=== PATIENT | male | born 1975 | race Asian ===

== ENCOUNTER 2016-06-02 15:04 | Inpatient (IN) | payer MEDICAID ==
[~2016-06-02] VITALS: Ht 175.3 cm; Wt 95.5 kg
[~2016-06-02 15:04] MED LIST: AMLO-512 PO; ARIP2 PO; CLON.2 PO; FLUT16H NASAL; HALO1 PO; LISI-662 PO; OMEP20 PO; TRAZ-144 PO
[2016-06-02 15:58] VITALS: BP 158/100
[2016-06-02] MEDS ORDERED: DiphenhydrAMINE HCL 50 MG/ML VIAL IM ONE (16:15)
[2016-06-02] MEDS ORDERED: HALOPERIDOL 5 MG TABLET PO PRN (16:15)
[2016-06-02] MEDS ORDERED: LORazepam 2 MG/ML VIAL IM ONE (16:15)
[2016-06-02] MEDS ORDERED: HALOPERIDOL LACTATE 5 MG/ML VIAL IM ONE (16:15)
[2016-06-02] MEDS ORDERED: ZOLPIDEM TARTRATE 10 MG TABLET PO PRN (16:15)
[2016-06-02] MEDS ORDERED: PALI234D IM (17:31)
[2016-06-02 17:32] VITALS: BP 142/88
[2016-06-02] MEDS: OMEPRAZOLE 20 MG CAPSULE PO SCH (18:33)
[2016-06-02 20:23] VITALS: BP 141/85
[2016-06-03 06:44] VITALS: BP 136/79
[2016-06-03 08:02] LABS: ALANINE AMINOTRANSFERASE 31 U/L (12-78); ALBUMIN 3.5 g/dL (3.4-5.0); ANION GAP 7 mmol/L (8-16); ASPARTATE AMINOTRANSFERASE 21 U/L (15-37); BILIRUBIN,TOTAL 0.4 mg/dL (0.1-1.0); CALCIUM, TOTAL 9.3 mg/dL (8.8-10.5); CARBON DIOXIDE 32 mmol/L (22-29); CHLORIDE 101 mmol/L (98-107); CREATININE 1.15 mg/dL (0.60-1.30); GLOMERULAR FILTR. RATE CALC > 60 mL/min (>60); POTASSIUM 4.7 mmol/L (3.5-5.1); SODIUM SERUM 140 mmol/L (136-145); TOTAL PROTEIN, SERUM 7.6 g/dL (6.4-8.2); UREA NITROGEN, BLOOD 18 mg/dL (7-18)
[2016-06-03 08:03] LABS: BASOPHILS # (AUTO) 0.05 K/uL (0.00-0.20); BASOPHILS % (AUTO) 0.5 % (0.0-2.0); EOSINOPHILS # (AUTO) 0.49 K/uL (0.00-0.70); EOSINOPHILS % (AUTO) 4.75 % (1.0-6.0); HEMATOCRIT 50.7 % (41-53); HEMOGLOBIN 17.2 g/dL (13.5-17.5); LYMPHOCYTES # (AUTO) 1.5 K/uL (1.0-4.8); MEAN CORPUSCULAR HEMOGLOBIN 29.4 pg (26.0-34.0); MEAN CORPUSCULAR VOLUME 86 fL (80-100); MONOCYTES # (AUTO) 0.9 K/uL (0.1-1.0); MONOCYTES % (AUTO) 9.1 % (2.0-9.0); NEUTROPHILS # (AUTO) 7.3 K/uL (1.8-7.7); NEUTROPHILS % (AUTO) 70.7 % (40.0-70.0); PLATELET COUNT (AUTO) 315 K/uL (150-450); RED BLOOD CELL COUNT(AUTO) 5.86 MIL/uL (4.50-5.90); RED CELL DISTRIBUTION WIDTH 13.5 % (11.5-14.5); WHITE BLOOD COUNT (AUTO) 10.3 K/uL (4.5-11.0)
[2016-06-03 08:16] LABS: APPEARANCE,URINE TURBID (CLEAR); GLUCOSE, URINE (UA) NEGATIVE (NEGATIVE); KETONES,URINE NEGATIVE (NEGATIVE); LEUKOCYTE ESTERASE ,URINE NEGATIVE (NEGATIVE); OCCULT BLOOD,URINE TRACE (NEGATIVE); PH,URINE 5.5 (5.0-8.0); PROTEIN,URINE TRACE (NEGATIVE)
[2016-06-03 08:18] LABS: ADD UA MICROSCOPIC YES
[2016-06-03 08:21] LABS: AMORPHOUS SEDIMENT,UR Many /LPF (None Seen); RBC,URINE 0-2 /HPF (0-2); WBC,URINE 0-2 /HPF (0-5)
[2016-06-03 08:38] VITALS: BP 142/87
[2016-06-03] MEDS: LISINOPRIL 20 MG TABLET PO SCH (10:07)
[2016-06-03] MEDS: AmLODIPine BESYLATE 10 MG TABLET PO SCH (10:08)
[2016-06-03] MEDS: PALIPERIDONE 6 MG ER TABLET PO SCH (10:08)
[2016-06-03] MEDS: OMEPRAZOLE 20 MG CAPSULE PO SCH (10:08)
[2016-06-03] MEDS: CloNIDine HCL 0.2 MG TABLET PO SCH ×2 (10:08→16:32)
[2016-06-03 12:23] VITALS: BP 134/85
[2016-06-03] MEDS: LORazepam 2 MG TABLET PO PRN (15:10)
[2016-06-03] MEDS ORDERED: IBUPROFEN 400 MG TABLET PO PRN (15:30)
[2016-06-03] MEDS ORDERED: ACETAMINOPHEN 325 MG TABLET PO PRN (15:30)
[2016-06-03 16:20] VITALS: BP 132/84
[2016-06-03] MEDS: FLUTICASONE PROPIONATE 50 MCG/SPRAY 16 GM NASAL SPRAY NASAL SCH (20:53)
[2016-06-04 06:47] VITALS: BP 145/95
[2016-06-04 07:51] LABS: HEMOGLOBIN A1C 5.5 % (4.5-6.2)
[2016-06-04 08:13] VITALS: BP 140/65
[2016-06-04] MEDS ORDERED: GuaiFENesin/D-METHORPHAN [SUGAR-FREE] 200-20MG/10 ML SYRUP UDCUP PO PRN (08:15)
[2016-06-04 08:41] LABS: CHOL/HDL RATIO 5.6 (4.2-7.3); THYROID STIMULATING HORMONE 0.75 uIU/mL (0.36-3.74)
[2016-06-04] MEDS ORDERED: OMEPRAZOLE 20 MG CAPSULE PO SCH (09:00)
[2016-06-04] MEDS: AmLODIPine BESYLATE 10 MG TABLET PO SCH (09:53)
[2016-06-04] MEDS: PALIPERIDONE 6 MG ER TABLET PO SCH (09:53)
[2016-06-04] MEDS: LORazepam 2 MG TABLET PO PRN ×3 (09:53→23:52)
[2016-06-04] MEDS: CloNIDine HCL 0.2 MG TABLET PO SCH ×2 (09:53→17:13)
[2016-06-04] MEDS: LISINOPRIL 20 MG TABLET PO SCH (09:53)
[2016-06-04] MEDS: OMEPRAZOLE 20 MG CAPSULE PO SCH (09:53)
[2016-06-04] MEDS: FLUTICASONE PROPIONATE 50 MCG/SPRAY 16 GM NASAL SPRAY NASAL SCH ×2 (09:53→17:13)
[2016-06-04 16:00] VITALS: BP 148/98
[2016-06-04 19:35] VITALS: BP 136/94
[2016-06-05 02:26] VITALS: BP 137/75
[2016-06-05 08:13] VITALS: BP 133/76
[2016-06-05] MEDS: FLUTICASONE PROPIONATE 50 MCG/SPRAY 16 GM NASAL SPRAY NASAL SCH (08:36)
[2016-06-05] MEDS: LORazepam 2 MG TABLET PO PRN (08:36)
[2016-06-05] MEDS: OMEPRAZOLE 20 MG CAPSULE PO SCH (08:36)
[2016-06-05] MEDS: LISINOPRIL 20 MG TABLET PO SCH (08:36)
[2016-06-05] MEDS: AmLODIPine BESYLATE 10 MG TABLET PO SCH (08:36)
[2016-06-05] MEDS: PALIPERIDONE 6 MG ER TABLET PO SCH (08:36)
[2016-06-05] MEDS: CloNIDine HCL 0.2 MG TABLET PO SCH (08:36)
[2016-06-05] MEDS ORDERED: PALI6 PO (10:03)
== END 2016-06-05 12:47 | disposition home or self-care (01) | DRG 750 ==
LOC: B3A 16:35 → B2S 16:35 → EDSTATUS 16:51 → B3A 18:00
PROVIDERS: ADMIT Psychiatry & Neurology Psychiatry; ATTEND Psychiatry & Neurology Psychiatry
DX: F25.0 Schizoaffective disorder, bipolar type (principal); R45.851 Suicidal ideations; Z59.0 Homelessness; I10 Essential (primary) hypertension; K21.9 Gastro-esophageal reflux disease without esophagitis; J30.9 Allergic rhinitis, unspecified; F17.200 Nicotine dependence, unspecified, uncomplicated; F12.10 Cannabis abuse, uncomplicated; F10.10 Alcohol abuse, uncomplicated; Z88.8 Allergy status to other drugs, medicaments and biological substances; Z90.49 Acquired absence of other specified parts of digestive tract; Z98.890 Other specified postprocedural states; Z79.899 Other long term (current) drug therapy; Z71.6 Tobacco abuse counseling
CPT/HCPCS: 83036; 84443; 87081; 87086; J1200; J1630; J2060

== ENCOUNTER 2016-06-21 13:06 | Emergency (ER) | payer MEDICAID ==
[~2016-06-21] VITALS: Ht 175.3 cm; Wt 95.0 kg
[~2016-06-21 13:06] MED LIST changes: -ARIP2 PO; -HALO1 PO; +PALI234D IM; +PALI6 PO; -TRAZ-144 PO
[2016-06-21] MEDS ORDERED: KETOROLAC TROMETHAMINE 60 MG/2 ML VIAL IM ONE (15:15)
[2016-06-21] MEDS ORDERED: LORazepam 2 MG TABLET PO ONE (15:15)
[2016-06-21 15:23] LABS: BASOPHILS % (AUTO) 0.1 % (0.0-2.0); EOSINOPHILS % (AUTO) 2.4 % (1.0-6.0); HEMATOCRIT 44.1 % (41-53); HEMOGLOBIN 14.7 g/dL (13.5-17.5); LYMPHOCYTES % (AUTO) 6.2 % (22.0-44.0); MEAN CORPUSCULAR HEMOGLOBIN 28.6 pg (26.0-34.0); MEAN CORPUSCULAR HGB CONC 33.3 G/dL (31.0-37.0); MEAN CORPUSCULAR VOLUME 86 fL (80-100); MONOCYTES # (AUTO) 0.8 K/uL (0.1-1.0); MONOCYTES % (AUTO) 4.7 % (2.0-9.0); NEUTROPHILS # (AUTO) 14.6 K/uL (1.8-7.7); PLATELET COUNT (AUTO) 245 K/uL (150-450); RED BLOOD CELL COUNT(AUTO) 5.13 MIL/uL (4.50-5.90); WHITE BLOOD COUNT (AUTO) 16.9 K/uL (4.5-11.0)
[2016-06-21 15:24] LABS: NEUTROPHILS % (AUTO) 86.6 % (40.0-70.0)
[2016-06-21 15:35] LABS: ANION GAP 9 mmol/L (8-16); CALCIUM, TOTAL 8.7 mg/dL (8.8-10.5); CARBON DIOXIDE 27 mmol/L (22-29); CHLORIDE 98 mmol/L (98-107); CREATININE 1.02 mg/dL (0.60-1.30); GLOMERULAR FILTR. RATE CALC > 60 mL/min (>60); POTASSIUM 3.6 mmol/L (3.5-5.1); SODIUM SERUM 134 mmol/L (136-145); UREA NITROGEN, BLOOD 19 mg/dL (7-18)
[2016-06-21 15:41] LABS: ALANINE AMINOTRANSFERASE 39 U/L (12-78); ALBUMIN 3.6 g/dL (3.4-5.0); ASPARTATE AMINOTRANSFERASE 27 U/L (15-37); BILIRUBIN,TOTAL 0.4 mg/dL (0.1-1.0); TOTAL PROTEIN, SERUM 7.6 g/dL (6.4-8.2)
[2016-06-21 15:50] LABS: RBC MORPHOLOGY COMMENT NORMAL RBC MORPH
[2016-06-21 16:58] VITALS: BP 156/83
== END 2016-06-21 17:17 | disposition home or self-care (01) ==
LOC: EMS 13:10
DX: F41.9 Anxiety disorder, unspecified (principal); F15.10 Other stimulant abuse, uncomplicated; M54.5 Low back pain; I10 Essential (primary) hypertension; F17.210 Nicotine dependence, cigarettes, uncomplicated; Z88.5 Allergy status to narcotic agent; Z88.8 Allergy status to other drugs, medicaments and biological substances
CPT/HCPCS: 36415; 80053; 85025; 96372; 99284; 99406; J1885

== ENCOUNTER 2016-07-05 18:01 | Emergency (ER) | payer MEDICAID ==
[~2016-07-05] VITALS: Ht 172.7 cm; Wt 91.0 kg
[2016-07-05 18:45] LABS: BASOPHILS % (AUTO) 0.7 % (0.0-2.0); EOSINOPHILS % (AUTO) 1.5 % (1.0-6.0); HEMATOCRIT 44.7 % (41-53); HEMOGLOBIN 14.8 g/dL (13.5-17.5); LYMPHOCYTES # (AUTO) 1.4 K/uL (1.0-4.8); LYMPHOCYTES % (AUTO) 11.9 % (22.0-44.0); MEAN CORPUSCULAR HEMOGLOBIN 28.6 pg (26.0-34.0); MEAN CORPUSCULAR HGB CONC 33.2 G/dL (31.0-37.0); MEAN CORPUSCULAR VOLUME 86 fL (80-100); MONOCYTES # (AUTO) 0.6 K/uL (0.1-1.0); NEUTROPHILS # (AUTO) 9.5 K/uL (1.8-7.7); NEUTROPHILS % (AUTO) 80.9 % (40.0-70.0); PLATELET COUNT (AUTO) 392 K/uL (150-450); RED BLOOD CELL COUNT(AUTO) 5.19 MIL/uL (4.50-5.90); RED CELL DISTRIBUTION WIDTH 13.2 % (11.5-14.5); WHITE BLOOD COUNT (AUTO) 11.8 K/uL (4.5-11.0)
[2016-07-05] MEDS ORDERED: SODIUM CHLORIDE 0.9% 1,000 ML IV ONE (19:00)
[2016-07-05] MEDS ORDERED: LORazepam 2 MG TABLET PO ONE (19:00)
[2016-07-05 19:03] LABS: ANION GAP 10 mmol/L (8-16); CARBON DIOXIDE 26 mmol/L (22-29); CHLORIDE 100 mmol/L (98-107); CREATININE 1.18 mg/dL (0.60-1.30); GLOMERULAR FILTR. RATE CALC > 60 mL/min (>60); POTASSIUM 3.5 mmol/L (3.5-5.1); SODIUM SERUM 136 mmol/L (136-145); UREA NITROGEN, BLOOD 17 mg/dL (7-18)
[2016-07-05 19:07] LABS: ALANINE AMINOTRANSFERASE 32 U/L (12-78); ALBUMIN 3.5 g/dL (3.4-5.0); ASPARTATE AMINOTRANSFERASE 22 U/L (15-37); BILIRUBIN,TOTAL 0.3 mg/dL (0.1-1.0)
[2016-07-05] MEDS ORDERED: NITROGLYCERIN 2% (1 GM=INCH) PACKET TP ONE (20:30)
[2016-07-05] MEDS ORDERED: DONNATAL/LIDOCAINE/MAALOX 55 ML BOTTLE PO ONE (20:30)
[2016-07-05] MEDS ORDERED: ACETAMINOPHEN 500 MG TABLET PO ONE (20:30)
[2016-07-05] MEDS ORDERED: ASPIRIN 81 MG CHEWABLE TABLET PO ONE (20:30)
[2016-07-05] MEDS ORDERED: LISINOPRIL 10 MG TABLET PO ONE (21:30)
[2016-07-05 21:56] VITALS: BP 138/85
== END 2016-07-05 22:27 | disposition home or self-care (01) ==
LOC: EMS 18:03 → EEVIPCON 18:03 → EMS 22:27
DX: F31.9 Bipolar disorder, unspecified (principal); F20.9 Schizophrenia, unspecified; F41.9 Anxiety disorder, unspecified; F15.10 Other stimulant abuse, uncomplicated; I10 Essential (primary) hypertension; F17.210 Nicotine dependence, cigarettes, uncomplicated; Z88.5 Allergy status to narcotic agent; Z88.8 Allergy status to other drugs, medicaments and biological substances
CPT/HCPCS: 36415; 80053; 80307; 84484; 85025; 93005; 96360; 99285; G0480; J7030; Z7610

== ENCOUNTER 2016-07-07 13:57 | Emergency (ER) | payer MEDICAID ==
[~2016-07-07] VITALS: Ht 172.7 cm; Wt 99.0 kg
[2016-07-07 15:35] LABS: BASOPHILS # (AUTO) 0.06 K/uL (0.00-0.20); BASOPHILS % (AUTO) 0.7 % (0.0-2.0); EOSINOPHILS % (AUTO) 3.62 % (1.0-6.0); HEMATOCRIT 43.8 % (41-53); HEMOGLOBIN 14.9 g/dL (13.5-17.5); LYMPHOCYTES # (AUTO) 1.7 K/uL (1.0-4.8); LYMPHOCYTES % (AUTO) 20.7 % (22.0-44.0); MEAN CORPUSCULAR HEMOGLOBIN 29.1 pg (26.0-34.0); MEAN CORPUSCULAR HGB CONC 33.9 G/dL (31.0-37.0); MEAN CORPUSCULAR VOLUME 86 fL (80-100); MONOCYTES % (AUTO) 11.5 % (2.0-9.0); NEUTROPHILS # (AUTO) 5.2 K/uL (1.8-7.7); NEUTROPHILS % (AUTO) 63.5 % (40.0-70.0); PLATELET COUNT (AUTO) 347 K/uL (150-450); RED CELL DISTRIBUTION WIDTH 14.2 % (11.5-14.5); WHITE BLOOD COUNT (AUTO) 8.2 K/uL (4.5-11.0)
[2016-07-07 15:48] LABS: ANION GAP 6 mmol/L (8-16); CALCIUM, TOTAL 8.8 mg/dL (8.8-10.5); CARBON DIOXIDE 32 mmol/L (22-29); CHLORIDE 103 mmol/L (98-107); CREATININE 1.24 mg/dL (0.60-1.30); GLOMERULAR FILTR. RATE CALC > 60 mL/min (>60); POTASSIUM 3.5 mmol/L (3.5-5.1); SODIUM SERUM 141 mmol/L (136-145); UREA NITROGEN, BLOOD 15 mg/dL (7-18)
[2016-07-07 15:54] LABS: ALANINE AMINOTRANSFERASE 32 U/L (12-78); ALBUMIN 3.6 g/dL (3.4-5.0); ASPARTATE AMINOTRANSFERASE 18 U/L (15-37); BILIRUBIN,TOTAL 0.3 mg/dL (0.1-1.0); TOTAL PROTEIN, SERUM 7.9 g/dL (6.4-8.2)
[2016-07-07] MEDS ORDERED: LORazepam 2 MG TABLET PO ONE (17:00)
[2016-07-07] MEDS ORDERED: HALOPERIDOL 5 MG TABLET PO ONE (17:00)
[2016-07-07 17:18] VITALS: BP 144/88
== END 2016-07-07 17:20 | disposition home or self-care (01) ==
LOC: EMS 13:59
DX: F25.9 Schizoaffective disorder, unspecified (principal); F15.10 Other stimulant abuse, uncomplicated; F17.210 Nicotine dependence, cigarettes, uncomplicated; F41.9 Anxiety disorder, unspecified; I10 Essential (primary) hypertension; F42.9 Obsessive-compulsive disorder, unspecified; F43.10 Post-traumatic stress disorder, unspecified; Z88.6 Allergy status to analgesic agent; Z88.8 Allergy status to other drugs, medicaments and biological substances; Z79.899 Other long term (current) drug therapy
CPT/HCPCS: 36415; 80053; 80307; 85025; 99285; 99406; G0480

== ENCOUNTER 2016-07-11 18:36 | Inpatient (IN) | payer MEDICAID ==
[~2016-07-11] VITALS: Ht 172.7 cm; Wt 94.7 kg
[2016-07-11] MEDS ORDERED: ZOLPIDEM TARTRATE 10 MG TABLET PO PRN (19:15)
[2016-07-11] MEDS ORDERED: HALOPERIDOL 5 MG TABLET PO PRN (19:15)
[2016-07-11] MEDS ORDERED: LORazepam 2 MG/ML VIAL IM ONE (20:00)
[2016-07-11] MEDS ORDERED: DiphenhydrAMINE HCL 50 MG/ML VIAL IM ONE (20:00)
[2016-07-11] MEDS ORDERED: HALOPERIDOL LACTATE 5 MG/ML VIAL IM ONE (20:00)
[2016-07-11 20:12] VITALS: BP 160/90
[2016-07-11 21:15] VITALS: BP 132/82
[2016-07-12 07:20] VITALS: BP 112/69
[2016-07-12 08:44] LABS: BASOPHILS % (AUTO) 0.9 % (0.0-2.0); EOSINOPHILS % (AUTO) 5.9 % (1.0-6.0); HEMATOCRIT 46.4 % (41-53); HEMOGLOBIN 15.1 g/dL (13.5-17.5); LYMPHOCYTES % (AUTO) 26.5 % (22.0-44.0); MEAN CORPUSCULAR HEMOGLOBIN 28.4 pg (26.0-34.0); MEAN CORPUSCULAR HGB CONC 32.6 G/dL (31.0-37.0); MEAN CORPUSCULAR VOLUME 87 fL (80-100); MONOCYTES # (AUTO) 0.8 K/uL (0.1-1.0); MONOCYTES % (AUTO) 10.2 % (2.0-9.0); NEUTROPHILS # (AUTO) 4.3 K/uL (1.8-7.7); NEUTROPHILS % (AUTO) 56.5 % (40.0-70.0); PLATELET COUNT (AUTO) 340 K/uL (150-450); RED BLOOD CELL COUNT(AUTO) 5.33 MIL/uL (4.50-5.90); RED CELL DISTRIBUTION WIDTH 13.7 % (11.5-14.5); WHITE BLOOD COUNT (AUTO) 7.6 K/uL (4.5-11.0)
[2016-07-12 08:52] VITALS: BP 149/98
[2016-07-12] MEDS: FLUTICASONE PROPIONATE 50 MCG/SPRAY 16 GM NASAL SPRAY NASAL SCH ×2 (09:39→17:09)
[2016-07-12] MEDS: LISINOPRIL 20 MG TABLET PO SCH (09:39)
[2016-07-12] MEDS: NYSTATIN 15 GM POWDER BOTTLE TP SCH ×2 (09:39→17:09)
[2016-07-12] MEDS: AmLODIPine BESYLATE 10 MG TABLET PO SCH (09:39)
[2016-07-12] MEDS: PALIPERIDONE 6 MG ER TABLET PO SCH (09:39)
[2016-07-12] MEDS: CloNIDine HCL 0.1 MG TABLET PO SCH (09:39)
[2016-07-12 09:45] LABS: ALANINE AMINOTRANSFERASE 34 U/L (12-78); ALBUMIN 3.3 g/dL (3.4-5.0); ANION GAP 7 mmol/L (8-16); ASPARTATE AMINOTRANSFERASE 22 U/L (15-37); BILIRUBIN,TOTAL 0.5 mg/dL (0.1-1.0); CALCIUM, TOTAL 8.4 mg/dL (8.8-10.5); CARBON DIOXIDE 30 mmol/L (22-29); CHLORIDE 105 mmol/L (98-107); CHOL/HDL RATIO 3.7 (4.2-7.3); CREATININE 1.12 mg/dL (0.60-1.30); GLOMERULAR FILTR. RATE CALC > 60 mL/min (>60); POTASSIUM 3.7 mmol/L (3.5-5.1); SODIUM SERUM 142 mmol/L (136-145); THYROID STIMULATING HORMONE 0.59 uIU/mL (0.36-3.74); TOTAL PROTEIN, SERUM 7.2 g/dL (6.4-8.2); UREA NITROGEN, BLOOD 14 mg/dL (7-18)
[2016-07-12 16:00] VITALS: BP 136/81
[2016-07-13 07:03] VITALS: BP 138/80
[2016-07-13] MEDS: LORazepam 2 MG TABLET PO PRN ×2 (07:05→15:21)
[2016-07-13] MEDS: ACETAMINOPHEN 325 MG TABLET PO PRN (07:05)
[2016-07-13 08:30] VITALS: BP 136/75
[2016-07-13] MEDS: AmLODIPine BESYLATE 10 MG TABLET PO SCH (10:31)
[2016-07-13] MEDS: LISINOPRIL 20 MG TABLET PO SCH (10:31)
[2016-07-13] MEDS: FLUTICASONE PROPIONATE 50 MCG/SPRAY 16 GM NASAL SPRAY NASAL SCH ×2 (10:31→17:04)
[2016-07-13] MEDS: CloNIDine HCL 0.1 MG TABLET PO SCH (10:31)
[2016-07-13] MEDS: NYSTATIN 15 GM POWDER BOTTLE TP SCH ×2 (10:31→17:04)
[2016-07-13] MEDS: PALIPERIDONE 6 MG ER TABLET PO SCH (10:46)
[2016-07-13 16:00] VITALS: BP 130/77
[2016-07-14] MEDS: LORazepam 2 MG TABLET PO PRN (05:50)
[2016-07-14] MEDS: ACETAMINOPHEN 325 MG TABLET PO PRN (05:51)
[2016-07-14 08:24] VITALS: BP 133/84
[2016-07-14] MEDS: AmLODIPine BESYLATE 10 MG TABLET PO SCH (08:57)
[2016-07-14] MEDS: PALIPERIDONE 6 MG ER TABLET PO SCH (08:57)
[2016-07-14] MEDS: CloNIDine HCL 0.1 MG TABLET PO SCH (08:57)
[2016-07-14] MEDS: LISINOPRIL 20 MG TABLET PO SCH (08:57)
[2016-07-14] MEDS: NYSTATIN 15 GM POWDER BOTTLE TP SCH (08:58)
[2016-07-14] MEDS: FLUTICASONE PROPIONATE 50 MCG/SPRAY 16 GM NASAL SPRAY NASAL SCH (08:58)
== END 2016-07-14 10:00 | disposition home or self-care (01) | DRG 750 ==
LOC: B3A 19:14 → EDSTATUS 19:18
DX: F25.1 Schizoaffective disorder, depressive type (principal); R45.851 Suicidal ideations; Z59.0 Homelessness; I10 Essential (primary) hypertension; J30.9 Allergic rhinitis, unspecified; K21.9 Gastro-esophageal reflux disease without esophagitis; F15.10 Other stimulant abuse, uncomplicated; F99 Mental disorder, not otherwise specified; F17.200 Nicotine dependence, unspecified, uncomplicated; Z91.5 Personal history of self-harm; Z88.5 Allergy status to narcotic agent; Z88.8 Allergy status to other drugs, medicaments and biological substances; Z79.899 Other long term (current) drug therapy; Z71.6 Tobacco abuse counseling; Z71.51 Drug abuse counseling and surveillance of drug abuser; Z98.890 Other specified postprocedural states; Z90.49 Acquired absence of other specified parts of digestive tract
CPT/HCPCS: 83036; 84439; 84443; J1200; J1630; J2060

== ENCOUNTER 2016-07-14 22:21 | Emergency (ER) | payer MEDICAID ==
[~2016-07-14] VITALS: Ht 172.7 cm; Wt 127.0 kg
[2016-07-14 22:31] VITALS: BP 142/96
== END 2016-07-15 00:27 | disposition left against medical advice (07) ==
LOC: EMS 22:25
DX: R44.0 Auditory hallucinations (principal); F31.9 Bipolar disorder, unspecified; F20.9 Schizophrenia, unspecified; F41.9 Anxiety disorder, unspecified; I10 Essential (primary) hypertension; F15.90 Other stimulant use, unspecified, uncomplicated; F17.210 Nicotine dependence, cigarettes, uncomplicated; Z53.21 Procedure and treatment not carried out due to patient leaving prior to being seen by health care provider
CPT/HCPCS: 99281

== ENCOUNTER 2016-07-15 01:23 | Inpatient (IN) | payer MEDICAID ==
[~2016-07-15] VITALS: Ht 172.7 cm; Wt 92.0 kg
[2016-07-15] MEDS ORDERED: MAGNESIUM HYDROXIDE SUSPENSION 30 ML UDCUP PO PRN (02:00)
[2016-07-15] MEDS ORDERED: MAG HYDROX/AL HYDROX/SIMETH ES 30 ML SUSPENSION UDCUP PO PRN (02:00)
[2016-07-15] MEDS ORDERED: BACITRACIN 0.9 GM PACKET OINTMENT TP ONE (03:30)
[2016-07-15 03:32] LABS: BASOPHILS % (AUTO) 0.7 % (0.0-2.0); EOSINOPHILS % (AUTO) 3.4 % (1.0-6.0); HEMATOCRIT 47.1 % (41-53); HEMOGLOBIN 15.7 g/dL (13.5-17.5); LYMPHOCYTES % (AUTO) 19.8 % (22.0-44.0); MEAN CORPUSCULAR HEMOGLOBIN 28.9 pg (26.0-34.0); MEAN CORPUSCULAR HGB CONC 33.2 G/dL (31.0-37.0); MEAN CORPUSCULAR VOLUME 87 fL (80-100); MONOCYTES % (AUTO) 9.9 % (2.0-9.0); NEUTROPHILS # (AUTO) 6.7 K/uL (1.8-7.7); NEUTROPHILS % (AUTO) 66.2 % (40.0-70.0); PLATELET COUNT (AUTO) 327 K/uL (150-450); RED BLOOD CELL COUNT(AUTO) 5.42 MIL/uL (4.50-5.90); RED CELL DISTRIBUTION WIDTH 13.5 % (11.5-14.5); WHITE BLOOD COUNT (AUTO) 10.1 K/uL (4.5-11.0)
[2016-07-15 03:35] LABS: ANION GAP 9 mmol/L (8-16); CALCIUM, TOTAL 8.8 mg/dL (8.8-10.5); CARBON DIOXIDE 29 mmol/L (22-29); CHLORIDE 102 mmol/L (98-107); CREATININE 1.17 mg/dL (0.60-1.30); GLOMERULAR FILTR. RATE CALC > 60 mL/min (>60); POTASSIUM 3.8 mmol/L (3.5-5.1); SODIUM SERUM 140 mmol/L (136-145); UREA NITROGEN, BLOOD 15 mg/dL (7-18)
[2016-07-15 03:42] LABS: ALANINE AMINOTRANSFERASE 34 U/L (12-78); ALBUMIN 3.9 g/dL (3.4-5.0); ASPARTATE AMINOTRANSFERASE 21 U/L (15-37); BILIRUBIN,TOTAL 0.3 mg/dL (0.1-1.0); TOTAL PROTEIN, SERUM 8.3 g/dL (6.4-8.2)
[2016-07-15] MEDS ORDERED: ACETAMINOPHEN 500 MG TABLET PO ONE (03:45)
[2016-07-15] MEDS ORDERED: MAG HYDROX/AL HYDROX/SIMETH ES 30 ML SUSPENSION UDCUP PO ONE (03:45)
[2016-07-15] MEDS: LORazepam 2 MG TABLET PO PRN (04:24)
[2016-07-15] MEDS ORDERED: LORazepam 2 MG TABLET PO ONE (18:15)
[2016-07-15] MEDS ORDERED: HALOPERIDOL 5 MG TABLET PO ONE (18:15)
[2016-07-16] MEDS: LORazepam 2 MG TABLET PO PRN ×3 (09:57→21:06)
[2016-07-16 14:31] VITALS: BP 154/100
[2016-07-16 14:40] VITALS: BP 154/100
[2016-07-16] MEDS: LISINOPRIL 20 MG TABLET PO SCH (15:00)
[2016-07-16 17:04] VITALS: BP 122/82
[2016-07-16] MEDS ORDERED: OLANZapine 5 MG TABLET PO SCH (21:00)
[2016-07-16] MEDS: ZOLPIDEM TARTRATE 10 MG TABLET PO PRN (22:31)
[2016-07-17 08:13] VITALS: BP 134/82
[2016-07-17] MEDS: LISINOPRIL 20 MG TABLET PO SCH (08:42)
[2016-07-17] MEDS: CloNIDine HCL 0.2 MG TABLET PO SCH (08:43)
[2016-07-17] MEDS: AmLODIPine BESYLATE 10 MG TABLET PO SCH (08:43)
[2016-07-17] MEDS: PALIPERIDONE 6 MG ER TABLET PO SCH (08:59)
[2016-07-17] MEDS ORDERED: FLUoxetine HCL 20 MG CAPSULE PO SCH (09:00)
[2016-07-17] MEDS: HALOPERIDOL 5 MG TABLET PO PRN ×2 (11:58→18:14)
[2016-07-17] MEDS: LORazepam 2 MG TABLET PO PRN ×2 (11:58→16:29)
[2016-07-17 16:16] VITALS: BP 131/77
[2016-07-17] MEDS: ACETAMINOPHEN 325 MG TABLET PO PRN (16:18)
[2016-07-17] MEDS: ZOLPIDEM TARTRATE 10 MG TABLET PO PRN (20:07)
[2016-07-18] MEDS: LISINOPRIL 20 MG TABLET PO SCH (08:06)
[2016-07-18] MEDS: HALOPERIDOL 5 MG TABLET PO PRN ×3 (08:06→18:49)
[2016-07-18] MEDS: LORazepam 2 MG TABLET PO PRN ×4 (08:06→20:16)
[2016-07-18] MEDS: CloNIDine HCL 0.2 MG TABLET PO SCH (08:06)
[2016-07-18] MEDS: AmLODIPine BESYLATE 10 MG TABLET PO SCH (08:06)
[2016-07-18] MEDS: PALIPERIDONE 6 MG ER TABLET PO SCH (08:07)
[2016-07-18] MEDS: ACETAMINOPHEN 325 MG TABLET PO PRN (08:07)
[2016-07-18 08:30] VITALS: BP 146/84
[2016-07-18 16:00] VITALS: BP 141/79
[2016-07-18] MEDS: ZOLPIDEM TARTRATE 10 MG TABLET PO PRN (20:16)
[2016-07-19] MEDS: CloNIDine HCL 0.2 MG TABLET PO SCH (08:07)
[2016-07-19] MEDS: PALIPERIDONE 6 MG ER TABLET PO SCH (08:07)
[2016-07-19] MEDS: LISINOPRIL 20 MG TABLET PO SCH (08:08)
[2016-07-19] MEDS: AmLODIPine BESYLATE 10 MG TABLET PO SCH (08:08)
[2016-07-19] MEDS: LORazepam 2 MG TABLET PO PRN (08:10)
[2016-07-19 08:58] VITALS: BP 134/84
== END 2016-07-19 11:50 | disposition home or self-care (01) | DRG 750 ==
LOC: EMS 01:25 → 3EC 07-16 14:00
PROVIDERS: ADMIT Psychiatry & Neurology Psychiatry
DX: F25.1 Schizoaffective disorder, depressive type (principal); R45.851 Suicidal ideations; E55.9 Vitamin D deficiency, unspecified; K31.9 Disease of stomach and duodenum, unspecified; J98.4 Other disorders of lung; I10 Essential (primary) hypertension; F15.10 Other stimulant abuse, uncomplicated; F42.9 Obsessive-compulsive disorder, unspecified; F43.10 Post-traumatic stress disorder, unspecified; K21.9 Gastro-esophageal reflux disease without esophagitis; J30.9 Allergic rhinitis, unspecified; S61.519A Laceration without foreign body of unspecified wrist, initial encounter; X78.9XXA Intentional self-harm by unspecified sharp object, initial encounter; F17.210 Nicotine dependence, cigarettes, uncomplicated; F10.10 Alcohol abuse, uncomplicated; Y92.89 Other specified places as the place of occurrence of the external cause; Y99.8 Other external cause status; Z59.0 Homelessness; Z91.19 Patient's noncompliance with other medical treatment and regimen; Z88.8 Allergy status to other drugs, medicaments and biological substances; Z88.5 Allergy status to narcotic agent; Y93.89 Activity, other specified; Z79.899 Other long term (current) drug therapy; Z71.6 Tobacco abuse counseling; F12.10 Cannabis abuse, uncomplicated
CPT/HCPCS: 87081; 99285; G0480

== ENCOUNTER 2016-11-21 10:38 | Emergency (ER) | payer MEDICAID ==
[~2016-11-21] VITALS: Ht 172.7 cm; Wt 96.8 kg
[~2016-11-21 10:38] MED LIST changes: -FLUT16H NASAL; +LEVO500T62 PO; -OMEP20 PO; -PALI234D IM
[2016-11-21] MEDS ORDERED: HYDR25TA PO (10:50)
[2016-11-21 10:57] VITALS: BP 156/91
== END 2016-11-21 11:47 | disposition home or self-care (01) ==
LOC: EMS 10:40
DX: I10 Essential (primary) hypertension (principal); F20.9 Schizophrenia, unspecified; F42.9 Obsessive-compulsive disorder, unspecified; F43.10 Post-traumatic stress disorder, unspecified; F31.9 Bipolar disorder, unspecified; F17.210 Nicotine dependence, cigarettes, uncomplicated; F15.10 Other stimulant abuse, uncomplicated; F41.9 Anxiety disorder, unspecified; Z59.0 Homelessness; Z90.49 Acquired absence of other specified parts of digestive tract; Z88.6 Allergy status to analgesic agent; Z88.8 Allergy status to other drugs, medicaments and biological substances
CPT/HCPCS: 99283

== ENCOUNTER 2016-12-13 07:09 | Emergency (ER) | payer MEDICAID ==
[~2016-12-13] VITALS: Ht 175.3 cm; Wt 85.0 kg
[~2016-12-13 07:09] MED LIST changes: +HYDR25TA PO; -LEVO500T62 PO; -PALI6 PO
[2016-12-13] MEDS ORDERED: ACETAMINOPHEN 1000 MG/ISO-OSM 100 ML IV ONE (07:45)
[2016-12-13] MEDS ORDERED: LORazepam 2 MG/ML VIAL IVP ONE (07:45)
[2016-12-13] MEDS ORDERED: CloNIDine HCL 0.2 MG TABLET PO ONE (08:00)
[2016-12-13 08:07] LABS: BASOPHILS % (AUTO) 1.4 % (0.0-2.0); EOSINOPHILS % (AUTO) 4.6 % (1.0-6.0); HEMATOCRIT 40.3 % (41-53); LYMPHOCYTES # (AUTO) 1.5 K/uL (1.0-4.8); LYMPHOCYTES % (AUTO) 23.8 % (22.0-44.0); MEAN CORPUSCULAR HEMOGLOBIN 30.1 pg (26.0-34.0); MEAN CORPUSCULAR HGB CONC 34.7 G/dL (31.0-37.0); MEAN CORPUSCULAR VOLUME 87 fL (80-100); MONOCYTES # (AUTO) 0.5 K/uL (0.1-1.0); MONOCYTES % (AUTO) 7.8 % (2.0-9.0); NEUTROPHILS % (AUTO) 62.4 % (40.0-70.0); PLATELET COUNT (AUTO) 262 K/uL (150-450); RED BLOOD CELL COUNT(AUTO) 4.64 MIL/uL (4.50-5.90); RED CELL DISTRIBUTION WIDTH 13.4 % (11.5-14.5); WHITE BLOOD COUNT (AUTO) 6.5 K/uL (4.5-11.0)
[2016-12-13 08:17] LABS: ANION GAP 9 mmol/L (8-16); CALCIUM, TOTAL 8.8 mg/dL (8.8-10.5); CARBON DIOXIDE 28 mmol/L (22-29); CHLORIDE 105 mmol/L (98-107); CREATININE 1.19 mg/dL (0.60-1.30); GLOMERULAR FILTR. RATE CALC > 60 mL/min (>60); POTASSIUM 3.9 mmol/L (3.5-5.1); SODIUM SERUM 142 mmol/L (136-145); UREA NITROGEN, BLOOD 13 mg/dL (7-18)
[2016-12-13 08:22] LABS: ALANINE AMINOTRANSFERASE 24 U/L (12-78); ALBUMIN 3.2 g/dL (3.4-5.0); ASPARTATE AMINOTRANSFERASE 17 U/L (15-37); BILIRUBIN,TOTAL 0.2 mg/dL (0.1-1.0); TOTAL PROTEIN, SERUM 6.9 g/dL (6.4-8.2)
[2016-12-13 12:19] VITALS: BP 150/99
== END 2016-12-13 12:29 | disposition home or self-care (01) ==
LOC: EMS 07:11
DX: K29.70 Gastritis, unspecified, without bleeding (principal); F15.129 Other stimulant abuse with intoxication, unspecified; I10 Essential (primary) hypertension; F41.9 Anxiety disorder, unspecified; F31.9 Bipolar disorder, unspecified; F90.9 Attention-deficit hyperactivity disorder, unspecified type; N28.9 Disorder of kidney and ureter, unspecified; F20.9 Schizophrenia, unspecified; F17.210 Nicotine dependence, cigarettes, uncomplicated; F19.90 Other psychoactive substance use, unspecified, uncomplicated; Z88.8 Allergy status to other drugs, medicaments and biological substances; Z88.5 Allergy status to narcotic agent
CPT/HCPCS: 36415; 71010; 80053; 83690; 84484; 85025; 93005; 96374; 96375; 99285; J0131; J2060

== ENCOUNTER 2016-12-15 01:21 | Emergency (ER) | payer MEDICAID ==
[~2016-12-15] VITALS: Ht 175.3 cm; Wt 81.5 kg
[2016-12-15 01:27] VITALS: BP 155/99
== END 2016-12-15 03:06 | disposition left against medical advice (07) ==
LOC: EMS 01:24
DX: R10.9 Unspecified abdominal pain (principal); R11.2 Nausea with vomiting, unspecified; I10 Essential (primary) hypertension; F15.90 Other stimulant use, unspecified, uncomplicated; F17.210 Nicotine dependence, cigarettes, uncomplicated; Z53.21 Procedure and treatment not carried out due to patient leaving prior to being seen by health care provider

== ENCOUNTER 2017-01-17 01:33 | Emergency (ER) | payer SELFPAY ==
[~2017-01-17] VITALS: Ht 175.3 cm; Wt 81.8 kg
[2017-01-17] MEDS ORDERED: NEOMYCIN/POLYMYXIN B/DEXAMETH 3.5 GM OPHTHALMIC OINTMENT OD ONE (04:15)
[2017-01-17] MEDS ORDERED: NEOMYCIN/POLYMYXIN B/HYDROCORT 10 ML OTIC SOLUTION AS ONE (04:30)
[2017-01-17] MEDS ORDERED: IBUPROFEN 800 MG TABLET ONE (05:20)
[2017-01-17 05:25] VITALS: BP 134/69
[2017-01-17] MEDS ORDERED: IBUPROFEN 800 MG TABLET PO ONE (05:30)
== END 2017-01-17 05:29 | disposition home or self-care (01) ==
LOC: EMS 01:34
DX: H60.92 Unspecified otitis externa, left ear (principal); M79.642 Pain in left hand; I10 Essential (primary) hypertension; F15.90 Other stimulant use, unspecified, uncomplicated; F17.210 Nicotine dependence, cigarettes, uncomplicated; Z88.5 Allergy status to narcotic agent; Z88.8 Allergy status to other drugs, medicaments and biological substances
CPT/HCPCS: 99283

== ENCOUNTER 2017-01-18 06:06 | Emergency (ER) | payer MEDICAID ==
[~2017-01-18] VITALS: Ht 177.8 cm; Wt 100.0 kg
[2017-01-18 06:15] VITALS: BP 170/98
== END 2017-01-18 06:41 | disposition home or self-care (01) ==
LOC: EMS 06:08
DX: H60.92 Unspecified otitis externa, left ear (principal); L02.93 Carbuncle, unspecified; F25.9 Schizoaffective disorder, unspecified; F31.9 Bipolar disorder, unspecified; I10 Essential (primary) hypertension; F15.90 Other stimulant use, unspecified, uncomplicated; F17.210 Nicotine dependence, cigarettes, uncomplicated; Z59.0 Homelessness; Z88.5 Allergy status to narcotic agent; Z88.8 Allergy status to other drugs, medicaments and biological substances
CPT/HCPCS: 99283

== ENCOUNTER 2017-03-21 04:00 | Inpatient (IN) | payer MEDICAID ==
[~2017-03-21] VITALS: Ht 177.8 cm; Wt 76.9 kg
[2017-03-21] MEDS ORDERED: HYDROmorphone 2 MG/ML SYRINGE IVP ONE (04:15)
[2017-03-21] MEDS ORDERED: ONDANSETRON HCL 4 MG/2 ML VIAL IVP ONE (04:15)
[2017-03-21] MEDS ORDERED: SODIUM CHLORIDE 0.9% 1,000 ML IV ONE (04:15)
[2017-03-21] MEDS ORDERED: BARIUM SULFATE 0.1% SUSPENSION 450 ML BOTTLE PO ONE (04:30)
[2017-03-21 04:47] LABS: BASOPHILS # (AUTO) 0.07 K/uL (0.00-0.20); EOSINOPHILS # (AUTO) 0.39 K/uL (0.00-0.70); EOSINOPHILS % (AUTO) 5.93 % (1.0-6.0); HEMATOCRIT 45.3 % (41-53); HEMOGLOBIN 15.4 g/dL (13.5-17.5); LYMPHOCYTES # (AUTO) 1.2 K/uL (1.0-4.8); LYMPHOCYTES % (AUTO) 18.5 % (22.0-44.0); MEAN CORPUSCULAR HEMOGLOBIN 30.1 pg (26.0-34.0); MEAN CORPUSCULAR HGB CONC 33.9 G/dL (31.0-37.0); MEAN CORPUSCULAR VOLUME 89 fL (80-100); MONOCYTES # (AUTO) 0.6 K/uL (0.1-1.0); MONOCYTES % (AUTO) 9.3 % (2.0-9.0); NEUTROPHILS # (AUTO) 4.3 K/uL (1.8-7.7); NEUTROPHILS % (AUTO) 65.4 % (40.0-70.0); PLATELET COUNT (AUTO) 259 K/uL (150-450); RED BLOOD CELL COUNT(AUTO) 5.12 MIL/uL (4.50-5.90); RED CELL DISTRIBUTION WIDTH 13.6 % (11.5-14.5); WHITE BLOOD COUNT (AUTO) 6.6 K/uL (4.5-11.0)
[2017-03-21 04:57] LABS: ANION GAP 5 mmol/L (8-16); CALCIUM, TOTAL 9.1 mg/dL (8.8-10.5); CARBON DIOXIDE 32 mmol/L (22-29); CHLORIDE 100 mmol/L (98-107); CREATININE 0.99 mg/dL (0.60-1.30); GLOMERULAR FILTR. RATE CALC > 60 mL/min (>60); POTASSIUM 3.8 mmol/L (3.5-5.1); SODIUM SERUM 137 mmol/L (136-145); UREA NITROGEN, BLOOD 16 mg/dL (7-18)
[2017-03-21] MEDS ORDERED: IOVERSOL 320 MG/ML 50 ML VIAL ONE (04:59)
[2017-03-21] MEDS ORDERED: IOVERSOL 320 MG/ML 100 ML VIAL ONE (05:00)
[2017-03-21 05:03] LABS: ALANINE AMINOTRANSFERASE 45 U/L (12-78); ALBUMIN 3.8 g/dL (3.4-5.0); ASPARTATE AMINOTRANSFERASE 36 U/L (15-37); BILIRUBIN,TOTAL 0.4 mg/dL (0.1-1.0); TOTAL PROTEIN, SERUM 7.7 g/dL (6.4-8.2)
[2017-03-21] MEDS ORDERED: ASPIRIN 325 MG TABLET PO ONE (06:00)
[2017-03-21] MEDS ORDERED: NITROGLYCERIN 0.4 MG SUBLINGUAL TABLET #25 SL ONE (06:00)
[2017-03-21 06:29] LABS: INR 1.6 (0.9-1.1); PROTHROMBIN TIME 17.1 SEC (9.4-11.6)
[2017-03-21 06:35] LABS: GLUCOSE, URINE (UA) NEGATIVE (NEGATIVE); KETONES,URINE NEGATIVE (NEGATIVE); LEUKOCYTE ESTERASE ,URINE NEGATIVE (NEGATIVE); OCCULT BLOOD,URINE NEGATIVE (NEGATIVE); PH,URINE 7.5 (5.0-8.0); PROTEIN,URINE NEGATIVE (NEGATIVE)
[2017-03-21 06:44] LABS: CREATINE KINASE MB 8.9 ng/mL (0-5); CREATINE KINASE, TOTAL 758 U/L (39-308)
[2017-03-21] MEDS ORDERED: DONNATAL/LIDOCAINE/MAALOX 55 ML BOTTLE PO ONE (06:45)
[2017-03-21 07:05] LABS: ADD UA MICROSCOPIC YES; APPEARANCE,URINE SLIGHTLY CLOUDY (CLEAR)
[2017-03-21 07:07] LABS: AMORPHOUS SEDIMENT,UR Many /LPF (None Seen); RBC,URINE None Seen /HPF (0-2); SQUAMOUS EPITHELIAL CELL,UR None Seen /LPF (None Seen); WBC,URINE 0-2 /HPF (0-5)
[2017-03-21] MEDS ORDERED: METOPROLOL TARTRATE 50 MG TABLET PO ONE (09:30)
[2017-03-21] MEDS ORDERED: TICAGRELOR 90 MG TABLET PO ONE (09:30)
[2017-03-21] MEDS ORDERED: ATORVASTATIN CALCIUM 10 MG TABLET PO ONE (09:30)
[2017-03-21] MEDS ORDERED: LISINOPRIL 10 MG TABLET PO ONE (09:30)
[2017-03-21] MEDS ORDERED: ACETAMINOPHEN 325 MG TABLET PO PRN ×2 (10:45→22:00)
[2017-03-21] MEDS ORDERED: ONDANSETRON HCL 4 MG/2 ML VIAL IVP PRN (10:45)
[2017-03-21] MEDS ORDERED: 0.9% SODIUM CHLORIDE 10 ML SYRINGE IVP PRN (10:45)
[2017-03-21 11:24] VITALS: BP 165/100
[2017-03-21] MEDS ORDERED: CloNIDine HCL 0.1 MG TABLET PO PRN (12:45)
[2017-03-21] MEDS: CloNIDine HCL 0.1 MG TABLET PO SCH (12:51)
[2017-03-21 15:44] VITALS: BP 150/89
[2017-03-21 19:41] VITALS: BP 140/82
[2017-03-21] MEDS ORDERED: MAGNESIUM HYDROXIDE SUSPENSION 30 ML UDCUP PO PRN (22:00)
[2017-03-22] MEDS: OxyCODONE HCL/ACETAMINOPHEN 5-325 MG TABLET PO PRN ×2 (04:35→08:41)
[2017-03-22 04:36] VITALS: BP 150/98
[2017-03-22 07:04] VITALS: BP 149/79
[2017-03-22] MEDS: CloNIDine HCL 0.1 MG TABLET PO SCH (08:09)
[2017-03-22] MEDS ORDERED: DOCUSATE SODIUM 100 MG CAPSULE PO SCH (09:00)
[2017-03-22] MEDS ORDERED: PANTOPRAZOLE SODIUM 40 MG DR TABLET PO SCH (09:00)
[2017-03-22] MEDS ORDERED: ASPIRIN 81 MG CHEWABLE TABLET PO SCH (09:00)
== END 2017-03-22 09:00 | disposition left against medical advice (07) | DRG 392 ==
LOC: EMS 04:02 → 5S 10:30
PROVIDERS: ADMIT Hospitalist; ATTEND Hospitalist
DX: R10.9 Unspecified abdominal pain (principal); F25.9 Schizoaffective disorder, unspecified; R07.9 Chest pain, unspecified; Z53.21 Procedure and treatment not carried out due to patient leaving prior to being seen by health care provider; E86.0 Dehydration; F15.10 Other stimulant abuse, uncomplicated; F42.9 Obsessive-compulsive disorder, unspecified; F43.10 Post-traumatic stress disorder, unspecified; I10 Essential (primary) hypertension; K21.9 Gastro-esophageal reflux disease without esophagitis; F17.210 Nicotine dependence, cigarettes, uncomplicated; F32.9 Major depressive disorder, single episode, unspecified; F41.9 Anxiety disorder, unspecified; Z59.0 Homelessness; Z90.49 Acquired absence of other specified parts of digestive tract; Z88.5 Allergy status to narcotic agent; Z88.8 Allergy status to other drugs, medicaments and biological substances; Z79.899 Other long term (current) drug therapy; Z71.6 Tobacco abuse counseling; Z82.49 Family history of ischemic heart disease and other diseases of the circulatory system; Z83.3 Family history of diabetes mellitus
CPT/HCPCS: 74177; 93005; 93041; 96361; 96374; 96375; 99291; G0480; J1170; J2405; J7030

== ENCOUNTER 2017-03-30 03:05 | Inpatient (IN) | payer MEDICAID ==
[~2017-03-30] VITALS: Ht 175.3 cm; Wt 76.3 kg
[2017-03-30] MEDS ORDERED: CLON1PAT12 TD (03:13)
[2017-03-30] MEDS ORDERED: CLON-570 PO (03:13)
[2017-03-30] MEDS ORDERED: LISI-661 PO (03:13)
[2017-03-30] MEDS ORDERED: AMLO2.5T PO (03:15)
[2017-03-30] MEDS ORDERED: HYDR25TA PO (03:15)
[2017-03-30] MEDS ORDERED: IBUP-2070 PO (03:15)
[2017-03-30] MEDS ORDERED: HYDROCHLOROTHIAZIDE 25 MG TABLET PO ONE (03:30)
[2017-03-30] MEDS ORDERED: AmLODIPine BESYLATE 5 MG TABLET PO ONE (03:30)
[2017-03-30] MEDS ORDERED: LISINOPRIL 10 MG TABLET PO ONE (03:30)
[2017-03-30 03:36] LABS: BASOPHILS # (AUTO) 0.01 K/uL (0.00-0.20); BASOPHILS % (AUTO) 0.1 % (0.0-2.0); EOSINOPHILS % (AUTO) 1.81 % (1.0-6.0); HEMATOCRIT 41.3 % (41-53); HEMOGLOBIN 13.8 g/dL (13.5-17.5); LYMPHOCYTES % (AUTO) 5.9 % (22.0-44.0); MEAN CORPUSCULAR HGB CONC 33.4 G/dL (31.0-37.0); MEAN CORPUSCULAR VOLUME 90 fL (80-100); MONOCYTES % (AUTO) 6.1 % (2.0-9.0); NEUTROPHILS # (AUTO) 14.5 K/uL (1.8-7.7); PLATELET COUNT (AUTO) 217 K/uL (150-450); RED CELL DISTRIBUTION WIDTH 13.6 % (11.5-14.5); WHITE BLOOD COUNT (AUTO) 16.8 K/uL (4.5-11.0)
[2017-03-30 03:38] LABS: NEUTROPHILS % (AUTO) 86.1 % (40.0-70.0)
[2017-03-30 03:42] LABS: ANION GAP 4 mmol/L (8-16); CALCIUM, TOTAL 8.4 mg/dL (8.8-10.5); CARBON DIOXIDE 31 mmol/L (22-29); CHLORIDE 100 mmol/L (98-107); CREATININE 1.04 mg/dL (0.60-1.30); GLOMERULAR FILTR. RATE CALC > 60 mL/min (>60); POTASSIUM 3.5 mmol/L (3.5-5.1); SODIUM SERUM 135 mmol/L (136-145); UREA NITROGEN, BLOOD 16 mg/dL (7-18)
[2017-03-30 03:48] LABS: ALANINE AMINOTRANSFERASE 44 U/L (12-78); ALBUMIN 3.5 g/dL (3.4-5.0); ASPARTATE AMINOTRANSFERASE 31 U/L (15-37); BILIRUBIN,TOTAL 0.7 mg/dL (0.1-1.0)
[2017-03-30] MEDS ORDERED: BARIUM SULFATE 0.1% SUSPENSION 450 ML BOTTLE PO ONE (04:15)
[2017-03-30] MEDS ORDERED: ONDANSETRON HCL 4 MG/2 ML VIAL IVP ONE (04:15)
[2017-03-30] MEDS ORDERED: KETOROLAC TROMETHAMINE 30 MG/ML VIAL IVP ONE (04:15)
[2017-03-30] MEDS ORDERED: CloNIDine HCL 0.2 MG TABLET PO ONE (04:15)
[2017-03-30 05:11] LABS: APPEARANCE,URINE CLEAR (CLEAR); GLUCOSE, URINE (UA) NEGATIVE (NEGATIVE); KETONES,URINE NEGATIVE (NEGATIVE); LEUKOCYTE ESTERASE ,URINE NEGATIVE (NEGATIVE); OCCULT BLOOD,URINE NEGATIVE (NEGATIVE); PROTEIN,URINE NEGATIVE (NEGATIVE)
[2017-03-30 05:12] LABS: ADD UA MICROSCOPIC NO
[2017-03-30] MEDS ORDERED: IOVERSOL 350 MG/ML 100 ML VIAL ONE (06:35)
[2017-03-30] MEDS ORDERED: SODIUM CHLORIDE 0.9% 1,000 ML IV ONE ×3 (07:45→08:45)
[2017-03-30] MEDS ORDERED: 0.9% SODIUM CHLORIDE 10 ML SYRINGE IVP PRN (07:45)
[2017-03-30] MEDS ORDERED: ONDANSETRON HCL 4 MG/2 ML VIAL IVP PRN ×2 (07:45→08:45)
[2017-03-30] MEDS ORDERED: ACETAMINOPHEN 325 MG TABLET PO PRN ×2 (07:45→08:45)
[2017-03-30 08:44] VITALS: BP 142/87
[2017-03-30] MEDS ORDERED: MAGNESIUM HYDROXIDE SUSPENSION 30 ML UDCUP PO PRN (08:45)
[2017-03-30] MEDS ORDERED: ALBUTEROL SULFATE 2.5 MG/0.5 ML NEB SOLUTION NEB PRN (08:45)
[2017-03-30] MEDS ORDERED: PANTOPRAZOLE SODIUM 40 MG DR TABLET PO SCH (09:00)
[2017-03-30] MEDS ORDERED: CloNIDine HCL 0.1 MG TABLET PO PRN (09:15)
[2017-03-30] MEDS: DOCUSATE SODIUM 100 MG CAPSULE PO SCH ×2 (10:09→20:13)
[2017-03-30 11:15] VITALS: BP 143/73
[2017-03-30 15:37] VITALS: BP 135/79
[2017-03-30] MEDS ORDERED: -PHARMACY VACCINE NOTE- MISC ONE ×2 (18:30)
[2017-03-30 19:42] VITALS: BP 164/97
== END 2017-03-30 23:35 | disposition left against medical advice (07) | DRG 388 ==
LOC: EMS 03:06 → 6N 07:49
PROVIDERS: ADMIT Internal Medicine; ATTEND Internal Medicine
DX: K56.7 Ileus, unspecified (principal); G93.41 Metabolic encephalopathy; F25.9 Schizoaffective disorder, unspecified; F15.10 Other stimulant abuse, uncomplicated; F31.9 Bipolar disorder, unspecified; F42.9 Obsessive-compulsive disorder, unspecified; F43.10 Post-traumatic stress disorder, unspecified; I10 Essential (primary) hypertension; J44.9 Chronic obstructive pulmonary disease, unspecified; Z59.0 Homelessness; Z87.891 Personal history of nicotine dependence; Z53.21 Procedure and treatment not carried out due to patient leaving prior to being seen by health care provider; Z88.5 Allergy status to narcotic agent; Z88.8 Allergy status to other drugs, medicaments and biological substances
CPT/HCPCS: 74177; 96374; 96375; 99285; G0480; J1885; J2405; J7030

== ENCOUNTER 2017-05-23 00:54 | Emergency (ER) | payer MEDICAID ==
[~2017-05-23] VITALS: Ht 175.3 cm; Wt 96.8 kg
[~2017-05-23 00:54] MED LIST changes: -AMLO-512 PO; +AMLO2.5T PO; +CLON-570 PO; -CLON.2 PO; +IBUP-2070 PO; +LISI-661 PO; -LISI-662 PO
[2017-05-23 04:15] LABS: BASOPHILS # (AUTO) 0.07 K/uL (0.00-0.20); BASOPHILS % (AUTO) 0.8 % (0.0-2.0); EOSINOPHILS # (AUTO) 0.53 K/uL (0.00-0.70); EOSINOPHILS % (AUTO) 5.81 % (1.0-6.0); HEMATOCRIT 42.1 % (41-53); LYMPHOCYTES # (AUTO) 1.8 K/uL (1.0-4.8); LYMPHOCYTES % (AUTO) 19.8 % (22.0-44.0); MEAN CORPUSCULAR HEMOGLOBIN 29.5 pg (26.0-34.0); MEAN CORPUSCULAR HGB CONC 33.2 G/dL (31.0-37.0); MEAN CORPUSCULAR VOLUME 89 fL (80-100); MONOCYTES % (AUTO) 10.8 % (2.0-9.0); NEUTROPHILS # (AUTO) 5.7 K/uL (1.8-7.7); NEUTROPHILS % (AUTO) 62.8 % (40.0-70.0); PLATELET COUNT (AUTO) 239 K/uL (150-450); RED BLOOD CELL COUNT(AUTO) 4.73 MIL/uL (4.50-5.90); RED CELL DISTRIBUTION WIDTH 13.4 % (11.5-14.5)
[2017-05-23 04:24] LABS: ANION GAP 3 mmol/L (8-16); CALCIUM, TOTAL 8.5 mg/dL (8.8-10.5); CARBON DIOXIDE 31 mmol/L (22-29); CHLORIDE 102 mmol/L (98-107); CREATININE 1.01 mg/dL (0.60-1.30); GLOMERULAR FILTR. RATE CALC > 60 mL/min (>60); GLUCOSE,RANDOM 109 mg/dL (70-110); POTASSIUM 3.3 mmol/L (3.5-5.1); SODIUM SERUM 136 mmol/L (136-145); UREA NITROGEN, BLOOD 20 mg/dL (7-18)
[2017-05-23 04:29] LABS: ALANINE AMINOTRANSFERASE 37 U/L (12-78); ALBUMIN 3.3 g/dL (3.4-5.0); ALKALINE PHOSPHATASE 60 U/L (46-116); ASPARTATE AMINOTRANSFERASE 27 U/L (15-37); BILIRUBIN,TOTAL 0.2 mg/dL (0.1-1.0); LIPASE 82 U/L (73-393)
[2017-05-23 05:07] VITALS: BP 171/82
[2017-05-23] MEDS ORDERED: KETOROLAC TROMETHAMINE 60 MG/2 ML VIAL IM ONE (05:15)
[2017-05-23] MEDS ORDERED: ACETAMINOPHEN 500 MG TABLET PO ONE (05:15)
[2017-05-23 05:27] LABS: AMPHET/METH SCREEN,URINE POSITIVE (NEGATIVE); BARBITURATE SCREEN, URINE NEGATIVE (NEGATIVE); BENZODIAZEPINES SCREEN,URINE NEGATIVE (NEGATIVE); CANNABINOID SCREEN,URINE NEGATIVE (NEGATIVE); COCAINE SCREEN,URINE NEGATIVE (NEGATIVE); METHADONE SCREEN, URINE NEGATIVE (NEGATIVE); OPIATE SCREEN,URINE NEGATIVE (NEGATIVE)
[2017-05-23 05:32] LABS: PHENCYCLIDINE SCREEN,URINE NEGATIVE (NEGATIVE)
[2017-05-23 05:34] LABS: APPEARANCE,URINE CLEAR (CLEAR); BILIRUBIN,URINE NEGATIVE (NEGATIVE); GLUCOSE, URINE (UA) NEGATIVE (NEGATIVE); KETONES,URINE NEGATIVE (NEGATIVE); LEUKOCYTE ESTERASE ,URINE NEGATIVE (NEGATIVE); NITRATE,URINE NEGATIVE (NEGATIVE); OCCULT BLOOD,URINE NEGATIVE (NEGATIVE); PROTEIN,URINE NEGATIVE (NEGATIVE); UROBILINOGEN,URINE 0.2 mg/dL (<=1.0)
[2017-05-23] MEDS ORDERED: POTASSIUM CHLORIDE 10% 40 MEQ/30 ML LIQUID UDCUP PO ONE (05:45)
== END 2017-05-23 05:56 | disposition home or self-care (01) ==
LOC: EMS 00:56
DX: R10.84 Generalized abdominal pain (principal); F15.10 Other stimulant abuse, uncomplicated; I10 Essential (primary) hypertension; F17.210 Nicotine dependence, cigarettes, uncomplicated; Z59.0 Homelessness; Z88.5 Allergy status to narcotic agent; Z88.8 Allergy status to other drugs, medicaments and biological substances
CPT/HCPCS: 36415; 80053; 80307; 81003; 83690; 85025; 96372; 99284; 99406; G0480; J1885

== ENCOUNTER 2017-06-02 20:32 | Emergency (ER) | payer MEDICAID ==
[~2017-06-02] VITALS: Ht 175.3 cm; Wt 2.2 kg
[2017-06-02] MEDS ORDERED: PENICILLIN V POTASSIUM 500 MG TABLET PO ONE (21:15)
[2017-06-02] MEDS ORDERED: IBUPROFEN 800 MG TABLET PO ONE (21:15)
[2017-06-02 21:21] VITALS: BP 154/89
== END 2017-06-02 21:40 | disposition home or self-care (01) ==
LOC: EMS 20:34
DX: F25.9 Schizoaffective disorder, unspecified (principal); K02.9 Dental caries, unspecified; F31.9 Bipolar disorder, unspecified; I10 Essential (primary) hypertension; F17.210 Nicotine dependence, cigarettes, uncomplicated; F15.90 Other stimulant use, unspecified, uncomplicated; Z88.5 Allergy status to narcotic agent; Z88.8 Allergy status to other drugs, medicaments and biological substances; Z59.0 Homelessness
CPT/HCPCS: 99285; 99406

== ENCOUNTER 2017-11-14 12:34 | Emergency (ER) | payer MEDICAID ==
[~2017-11-14] VITALS: Ht 170.2 cm; Wt 77.3 kg
[2017-11-14] MEDS ORDERED: SODIUM CHLORIDE 0.9% 1,000 ML IV ONE ×2 (14:00→15:15)
[2017-11-14 14:32] LABS: BASOPHILS % (AUTO) 2.3 % (0.0-2.0); EOSINOPHILS % (AUTO) 8.1 % (1.0-6.0); HEMATOCRIT 41.6 % (41-53); LYMPHOCYTES # (AUTO) 1.6 K/uL (1.0-4.8); LYMPHOCYTES % (AUTO) 28.1 % (22.0-44.0); MEAN CORPUSCULAR HEMOGLOBIN 29.8 pg (26.0-34.0); MEAN CORPUSCULAR HGB CONC 33.8 G/dL (31.0-37.0); MEAN CORPUSCULAR VOLUME 88 fL (80-100); MONOCYTES # (AUTO) 0.7 K/uL (0.1-1.0); MONOCYTES % (AUTO) 11.2 % (2.0-9.0); NEUTROPHILS # (AUTO) 2.9 K/uL (1.8-7.7); NEUTROPHILS % (AUTO) 50.3 % (40.0-70.0); PLATELET COUNT (AUTO) 241 K/uL (150-450); RED BLOOD CELL COUNT(AUTO) 4.71 MIL/uL (4.50-5.90); RED CELL DISTRIBUTION WIDTH 13.5 % (11.5-14.5)
[2017-11-14 14:42] LABS: ANION GAP 8 mmol/L (8-16); CALCIUM, TOTAL 7.8 mg/dL (8.8-10.5); CARBON DIOXIDE 28 mmol/L (22-29); CHLORIDE 106 mmol/L (98-107); CREATININE 1.03 mg/dL (0.60-1.30); GLOMERULAR FILTR. RATE CALC > 60 mL/min (>60); GLUCOSE,RANDOM 108 mg/dL (70-110); POTASSIUM 3.5 mmol/L (3.5-5.1); SODIUM SERUM 142 mmol/L (136-145); UREA NITROGEN, BLOOD 16 mg/dL (7-18)
[2017-11-14 14:48] LABS: ALANINE AMINOTRANSFERASE 65 U/L (12-78); ALBUMIN 3.2 g/dL (3.4-5.0); ALKALINE PHOSPHATASE 77 U/L (46-116); ASPARTATE AMINOTRANSFERASE 43 U/L (15-37); BILIRUBIN,TOTAL 0.4 mg/dL (0.1-1.0); TOTAL PROTEIN, SERUM 6.5 g/dL (6.4-8.2)
[2017-11-14 15:02] LABS: AMPHET/METH SCREEN,URINE POSITIVE (NEGATIVE); BARBITURATE SCREEN, URINE NEGATIVE (NEGATIVE); BENZODIAZEPINES SCREEN,URINE NEGATIVE (NEGATIVE); CANNABINOID SCREEN,URINE NEGATIVE (NEGATIVE); COCAINE SCREEN,URINE NEGATIVE (NEGATIVE); METHADONE SCREEN, URINE NEGATIVE (NEGATIVE); OPIATE SCREEN,URINE NEGATIVE (NEGATIVE)
[2017-11-14 15:03] LABS: PHENCYCLIDINE SCREEN,URINE NEGATIVE (NEGATIVE)
[2017-11-14 16:07] VITALS: BP 188/109
== END 2017-11-14 16:29 | disposition home or self-care (01) ==
LOC: EMS 12:35
DX: F19.10 Other psychoactive substance abuse, uncomplicated (principal); I10 Essential (primary) hypertension; F17.210 Nicotine dependence, cigarettes, uncomplicated; Z88.5 Allergy status to narcotic agent; Z88.8 Allergy status to other drugs, medicaments and biological substances
CPT/HCPCS: 36415; 80053; 80307; 85025; 99284; G0480; J7030

== ENCOUNTER 2018-01-01 01:33 | Emergency (ER) | payer SELFPAY ==
[~2018-01-01] VITALS: Ht 172.7 cm; Wt 96.4 kg
[2018-01-01 02:19] LABS: AMPHET/METH SCREEN,URINE POSITIVE (NEGATIVE); BARBITURATE SCREEN, URINE NEGATIVE (NEGATIVE); BENZODIAZEPINES SCREEN,URINE NEGATIVE (NEGATIVE); CANNABINOID SCREEN,URINE NEGATIVE (NEGATIVE); COCAINE SCREEN,URINE NEGATIVE (NEGATIVE); METHADONE SCREEN, URINE NEGATIVE (NEGATIVE); OPIATE SCREEN,URINE NEGATIVE (NEGATIVE)
[2018-01-01 02:39] LABS: PHENCYCLIDINE SCREEN,URINE NEGATIVE (NEGATIVE)
[2018-01-01 02:40] LABS: EOSINOPHILS % (AUTO) 5.7 % (1.0-6.0); HEMATOCRIT 40.4 % (41-53); HEMOGLOBIN 13.8 g/dL (13.5-17.5); LYMPHOCYTES # (AUTO) 1.5 K/uL (1.0-4.8); LYMPHOCYTES % (AUTO) 18.6 % (22.0-44.0); MEAN CORPUSCULAR HEMOGLOBIN 30.7 pg (26.0-34.0); MEAN CORPUSCULAR VOLUME 90 fL (80-100); MONOCYTES # (AUTO) 0.9 K/uL (0.1-1.0); MONOCYTES % (AUTO) 10.6 % (2.0-9.0); NEUTROPHILS # (AUTO) 5.2 K/uL (1.8-7.7); NEUTROPHILS % (AUTO) 64.1 % (40.0-70.0); PLATELET COUNT (AUTO) 281 K/uL (150-450); RED BLOOD CELL COUNT(AUTO) 4.48 MIL/uL (4.50-5.90); RED CELL DISTRIBUTION WIDTH 12.9 % (11.5-14.5)
[2018-01-01 02:45] LABS: ANION GAP 5 mmol/L (8-16); CALCIUM, TOTAL 7.9 mg/dL (8.8-10.5); CARBON DIOXIDE 29 mmol/L (22-29); CHLORIDE 105 mmol/L (98-107); CREATININE 1.28 mg/dL (0.60-1.30); GLOMERULAR FILTR. RATE CALC > 60 mL/min (>60); GLUCOSE,RANDOM 121 mg/dL (70-110); POTASSIUM 3.2 mmol/L (3.5-5.1); SODIUM SERUM 139 mmol/L (136-145); UREA NITROGEN, BLOOD 21 mg/dL (7-18)
[2018-01-01 02:50] LABS: ALANINE AMINOTRANSFERASE 48 U/L (12-78); ALBUMIN 2.7 g/dL (3.4-5.0); ALKALINE PHOSPHATASE 75 U/L (46-116); ASPARTATE AMINOTRANSFERASE 29 U/L (15-37); BILIRUBIN,TOTAL 0.3 mg/dL (0.1-1.0); TOTAL PROTEIN, SERUM 5.9 g/dL (6.4-8.2)
[2018-01-01 05:44] VITALS: BP 144/91
== END 2018-01-01 05:51 | disposition home or self-care (01) ==
LOC: EMS 01:33
DX: R25.2 Cramp and spasm (principal); F15.10 Other stimulant abuse, uncomplicated; I10 Essential (primary) hypertension; E78.00 Pure hypercholesterolemia, unspecified; F31.9 Bipolar disorder, unspecified; F41.9 Anxiety disorder, unspecified; F20.9 Schizophrenia, unspecified; J45.909 Unspecified asthma, uncomplicated; Z88.5 Allergy status to narcotic agent; Z88.8 Allergy status to other drugs, medicaments and biological substances; Z59.0 Homelessness
CPT/HCPCS: 99284

== ENCOUNTER 2018-01-05 03:59 | Emergency (ER) | payer SELFPAY ==
[~2018-01-05] VITALS: Ht 172.7 cm; Wt 96.0 kg
[2018-01-05] MEDS ORDERED: FUROSEMIDE 40 MG/4 ML VIAL IVP ONE (06:15)
[2018-01-05] MEDS ORDERED: 0.9% SODIUM CHLORIDE 10 ML SYRINGE IVP PRN (06:15)
[2018-01-05] MEDS ORDERED: NITROGLYCERIN 2% (1 GM=INCH) PACKET TP ONE (06:15)
[2018-01-05] MEDS ORDERED: ACETAMINOPHEN 500 MG TABLET PO ONE (06:30)
[2018-01-05 06:41] LABS: BASOPHILS % (AUTO) 0.7 % (0.0-2.0); EOSINOPHILS % (AUTO) 1.7 % (1.0-6.0); HEMATOCRIT 41.1 % (41-53); HEMOGLOBIN 13.9 g/dL (13.5-17.5); LYMPHOCYTES # (AUTO) 1.3 K/uL (1.0-4.8); LYMPHOCYTES % (AUTO) 10.2 % (22.0-44.0); MEAN CORPUSCULAR HEMOGLOBIN 30.2 pg (26.0-34.0); MEAN CORPUSCULAR HGB CONC 33.8 G/dL (31.0-37.0); MEAN CORPUSCULAR VOLUME 89 fL (80-100); MONOCYTES # (AUTO) 1.4 K/uL (0.1-1.0); NEUTROPHILS # (AUTO) 9.7 K/uL (1.8-7.7); NEUTROPHILS % (AUTO) 76.4 % (40.0-70.0); PLATELET COUNT (AUTO) 273 K/uL (150-450)
[2018-01-05 06:45] LABS: INR 0.9 (0.9-1.1); PROTHROMBIN TIME 9.5 SEC (9.4-11.6)
[2018-01-05 06:59] LABS: AMPHET/METH SCREEN,URINE POSITIVE (NEGATIVE); BARBITURATE SCREEN, URINE NEGATIVE (NEGATIVE); BENZODIAZEPINES SCREEN,URINE NEGATIVE (NEGATIVE); CANNABINOID SCREEN,URINE NEGATIVE (NEGATIVE); COCAINE SCREEN,URINE NEGATIVE (NEGATIVE); METHADONE SCREEN, URINE NEGATIVE (NEGATIVE); OPIATE SCREEN,URINE NEGATIVE (NEGATIVE)
[2018-01-05 06:59] LABS: ANION GAP 7 mmol/L (8-16); CALCIUM, TOTAL 8.4 mg/dL (8.8-10.5); CARBON DIOXIDE 28 mmol/L (22-29); CHLORIDE 100 mmol/L (98-107); CREATININE 0.87 mg/dL (0.60-1.30); GLOMERULAR FILTR. RATE CALC > 60 mL/min (>60); GLUCOSE,RANDOM 114 mg/dL (70-110); POTASSIUM 3.7 mmol/L (3.5-5.1); SODIUM SERUM 135 mmol/L (136-145); UREA NITROGEN, BLOOD 14 mg/dL (7-18)
[2018-01-05 07:01] LABS: PHENCYCLIDINE SCREEN,URINE NEGATIVE (NEGATIVE)
[2018-01-05 07:05] LABS: ALANINE AMINOTRANSFERASE 44 U/L (12-78); ALBUMIN 2.6 g/dL (3.4-5.0); ALKALINE PHOSPHATASE 85 U/L (46-116); ASPARTATE AMINOTRANSFERASE 37 U/L (15-37); BILIRUBIN,TOTAL 0.5 mg/dL (0.1-1.0); TOTAL PROTEIN, SERUM 6.5 g/dL (6.4-8.2)
[2018-01-05 07:08] LABS: LACTIC ACID 0.5 mmol/L (0.4-2.0)
[2018-01-05 07:31] LABS: B-TYPE NATRIURETIC PEPTIDE 331 pg/mL (0-100)
[2018-01-05 07:56] LABS: BILIRUBIN,URINE NEGATIVE (NEGATIVE); GLUCOSE, URINE (UA) NEGATIVE (NEGATIVE); KETONES,URINE NEGATIVE (NEGATIVE); LEUKOCYTE ESTERASE ,URINE NEGATIVE (NEGATIVE); NITRATE,URINE NEGATIVE (NEGATIVE); OCCULT BLOOD,URINE NEGATIVE (NEGATIVE); PH,URINE 7.5 (5.0-8.0); PROTEIN,URINE NEGATIVE (NEGATIVE); UROBILINOGEN,URINE 0.2 mg/dL (<=1.0)
[2018-01-05 07:59] LABS: APPEARANCE,URINE CLEAR (CLEAR)
[2018-01-05] MEDS ORDERED: ASPIRIN 81 MG CHEWABLE TABLET PO SCH (10:45)
[2018-01-05] MEDS ORDERED: ACETAMINOPHEN 325 MG TABLET PO PRN (10:45)
[2018-01-05] MEDS ORDERED: MAGNESIUM HYDROXIDE SUSPENSION 30 ML UDCUP PO PRN (10:45)
[2018-01-05] MEDS ORDERED: PANTOPRAZOLE SODIUM 40 MG DR TABLET PO SCH (10:45)
[2018-01-05 12:10] VITALS: BP 171/102
[2018-01-05] MEDS ORDERED: LORazepam 1 MG TABLET ONE (12:29)
[2018-01-05] MEDS ORDERED: LORazepam 1 MG TABLET PO ONE (12:30)
[2018-01-05] MEDS ORDERED: TUBERCULIN, PURIFIED PROTEIN DERIVATIVE 5 TU/0.1 ML SYG ID ONE (12:30)
[2018-01-05] MEDS ORDERED: SODIUM CHLORIDE 0.9% 500 ML IV ONE (12:30)
== END 2018-01-05 13:02 | disposition home or self-care (01) ==
LOC: EMS 04:00 → 5N 08:12 → UNDOADMIN 08:12 → EMS 13:02
DX: R04.2 Hemoptysis (principal); R79.89 Other specified abnormal findings of blood chemistry; F15.10 Other stimulant abuse, uncomplicated; F41.9 Anxiety disorder, unspecified; J45.909 Unspecified asthma, uncomplicated; F32.9 Major depressive disorder, single episode, unspecified; E78.00 Pure hypercholesterolemia, unspecified; I10 Essential (primary) hypertension; F20.9 Schizophrenia, unspecified; N28.9 Disorder of kidney and ureter, unspecified; Z91.14 Patient's other noncompliance with medication regimen; Z88.5 Allergy status to narcotic agent; Z88.8 Allergy status to other drugs, medicaments and biological substances; Z90.49 Acquired absence of other specified parts of digestive tract; Z79.899 Other long term (current) drug therapy
CPT/HCPCS: 36415; 71045; 80053; 80307; 81003; 83605; 83880; 84484; 85025; 85610; 87040; 93005; 96374; 99285; J1940

== ENCOUNTER 2018-02-17 02:34 | Emergency (ER) | payer MEDICAID ==
[~2018-02-17] VITALS: Ht 172.7 cm; Wt 100.0 kg
[2018-02-17 02:37] VITALS: BP 181/113
== END 2018-02-17 04:05 | disposition left against medical advice (07) ==
LOC: EMS 02:35
DX: L02.414 Cutaneous abscess of left upper limb (principal); J45.909 Unspecified asthma, uncomplicated; E78.00 Pure hypercholesterolemia, unspecified; F31.9 Bipolar disorder, unspecified; F20.9 Schizophrenia, unspecified; I10 Essential (primary) hypertension; F41.9 Anxiety disorder, unspecified; F17.210 Nicotine dependence, cigarettes, uncomplicated; Z53.21 Procedure and treatment not carried out due to patient leaving prior to being seen by health care provider

== ENCOUNTER 2018-02-17 19:00 | Emergency (ER) | payer MEDICAID ==
[~2018-02-17] VITALS: Ht 172.7 cm; Wt 81.4 kg
[2018-02-17] MEDS ORDERED: ACETAMINOPHEN 500 MG TABLET PO ONE (19:45)
[2018-02-17] MEDS ORDERED: CEPHALEXIN MONOHYDRATE 500 MG CAPSULE PO ONE (19:45)
[2018-02-17] MEDS ORDERED: SULFAMETHOX/TRIMETH DS 800-160 MG/TABLET PO ONE (19:45)
[2018-02-17] MEDS ORDERED: KETOROLAC TROMETHAMINE 30 MG/ML VIAL IM ONE (19:45)
[2018-02-17 19:50] LABS: EOSINOPHILS % (AUTO) 5.2 % (1.0-6.0); HEMATOCRIT 40.1 % (41-53); HEMOGLOBIN 13.5 g/dL (13.5-17.5); LYMPHOCYTES # (AUTO) 1.1 K/uL (1.0-4.8); LYMPHOCYTES % (AUTO) 17.6 % (22.0-44.0); MEAN CORPUSCULAR HEMOGLOBIN 29.8 pg (26.0-34.0); MEAN CORPUSCULAR HGB CONC 33.6 G/dL (31.0-37.0); MEAN CORPUSCULAR VOLUME 88 fL (80-100); MONOCYTES % (AUTO) 15.4 % (2.0-9.0); NEUTROPHILS # (AUTO) 3.8 K/uL (1.8-7.7); NEUTROPHILS % (AUTO) 60.8 % (40.0-70.0); PLATELET COUNT (AUTO) 330 K/uL (150-450); RED BLOOD CELL COUNT(AUTO) 4.53 MIL/uL (4.50-5.90); RED CELL DISTRIBUTION WIDTH 13.5 % (11.5-14.5)
[2018-02-17 19:58] LABS: ANION GAP 4 mmol/L (8-16); CALCIUM, TOTAL 8.5 mg/dL (8.8-10.5); CARBON DIOXIDE 28 mmol/L (22-29); CHLORIDE 106 mmol/L (98-107); CREATININE 1.21 mg/dL (0.60-1.30); GLOMERULAR FILTR. RATE CALC > 60 mL/min (>60); GLUCOSE,RANDOM 119 mg/dL (70-110); POTASSIUM 4.1 mmol/L (3.5-5.1); SODIUM SERUM 138 mmol/L (136-145); UREA NITROGEN, BLOOD 23 mg/dL (7-18)
[2018-02-17] MEDS ORDERED: AmLODIPine BESYLATE 5 MG TABLET PO ONE (20:30)
[2018-02-17] MEDS ORDERED: HYDROCHLOROTHIAZIDE 25 MG TABLET PO ONE (20:30)
[2018-02-17 20:47] LABS: CREATINE KINASE, TOTAL ONLY 501 U/L (39-308)
[2018-02-17 21:00] VITALS: BP 169/99
== END 2018-02-17 21:20 | disposition home or self-care (01) ==
LOC: EMS 19:02
DX: L03.114 Cellulitis of left upper limb (principal); J45.909 Unspecified asthma, uncomplicated; F41.9 Anxiety disorder, unspecified; F31.9 Bipolar disorder, unspecified; E78.00 Pure hypercholesterolemia, unspecified; I10 Essential (primary) hypertension; F20.9 Schizophrenia, unspecified; F15.90 Other stimulant use, unspecified, uncomplicated; F17.210 Nicotine dependence, cigarettes, uncomplicated; Z59.0 Homelessness; Z88.5 Allergy status to narcotic agent; Z88.8 Allergy status to other drugs, medicaments and biological substances
CPT/HCPCS: 36415; 80048; 82550; 85025; 96372; 99284; 99406; J1885

== ENCOUNTER 2018-06-19 03:00 | Emergency (ER) | payer SELFPAY ==
[~2018-06-19] VITALS: Ht 175.3 cm; Wt 81.8 kg
[~2018-06-19 03:00] MED LIST changes: +AMLO-512 PO; -AMLO2.5T PO; +CIPOTIC; -CLON-570 PO; +DOXY100C PO; +FLUO-191 PO; -HYDR25TA PO; -IBUP-2070 PO; -LISI-661 PO; +LISI-662 PO; +OLAN5TAB27 PO
[2018-06-19 04:45] LABS: HEMATOCRIT 41.2 % (41-53); HEMOGLOBIN 13.6 g/dL (13.5-17.5); LYMPHOCYTES % (AUTO) 16.5 % (22.0-44.0); MEAN CORPUSCULAR HEMOGLOBIN 29.6 pg (26.0-34.0); MEAN CORPUSCULAR VOLUME 90 fL (80-100); MONOCYTES # (AUTO) 0.7 K/uL (0.1-1.0); MONOCYTES % (AUTO) 11.3 % (2.0-9.0); NEUTROPHILS # (AUTO) 3.9 K/uL (1.8-7.7); NEUTROPHILS % (AUTO) 65.2 % (40.0-70.0); PLATELET COUNT (AUTO) 250 K/uL (150-450)
[2018-06-19 04:54] LABS: ANION GAP 4 mmol/L (8-16); CARBON DIOXIDE 32 mmol/L (22-29); CHLORIDE 101 mmol/L (98-107); CREATININE 1.12 mg/dL (0.60-1.30); GLOMERULAR FILTR. RATE CALC > 60 mL/min (>60); GLUCOSE,RANDOM 161 mg/dL (70-110); POTASSIUM 3.3 mmol/L (3.5-5.1); SODIUM SERUM 137 mmol/L (136-145); UREA NITROGEN, BLOOD 24 mg/dL (7-18)
[2018-06-19 05:01] LABS: ALANINE AMINOTRANSFERASE 35 U/L (12-78); ALBUMIN 2.4 g/dL (3.4-5.0); ALKALINE PHOSPHATASE 58 U/L (46-116); ASPARTATE AMINOTRANSFERASE 37 U/L (15-37); BILIRUBIN,TOTAL 0.3 mg/dL (0.1-1.0); TOTAL PROTEIN, SERUM 6.2 g/dL (6.4-8.2)
[2018-06-19 05:05] LABS: B-TYPE NATRIURETIC PEPTIDE 311 pg/mL (0-100)
[2018-06-19] MEDS ORDERED: ASPIRIN 81 MG CHEWABLE TABLET PO ONE (05:15)
[2018-06-19 05:55] LABS: APPEARANCE,URINE CLEAR (CLEAR); BILIRUBIN,URINE NEGATIVE (NEGATIVE); GLUCOSE, URINE (UA) NEGATIVE (NEGATIVE); KETONES,URINE NEGATIVE (NEGATIVE); LEUKOCYTE ESTERASE ,URINE NEGATIVE (NEGATIVE); NITRATE,URINE NEGATIVE (NEGATIVE); OCCULT BLOOD,URINE NEGATIVE (NEGATIVE); PH,URINE 7.5 (5.0-8.0); PROTEIN,URINE NEGATIVE (NEGATIVE); UROBILINOGEN,URINE 0.2 mg/dL (<=1.0)
[2018-06-19 06:01] LABS: AMPHET/METH SCREEN,URINE POSITIVE (NEGATIVE); BARBITURATE SCREEN, URINE NEGATIVE (NEGATIVE); BENZODIAZEPINES SCREEN,URINE NEGATIVE (NEGATIVE); CANNABINOID SCREEN,URINE POSITIVE (NEGATIVE); COCAINE SCREEN,URINE NEGATIVE (NEGATIVE); METHADONE SCREEN, URINE NEGATIVE (NEGATIVE); OPIATE SCREEN,URINE NEGATIVE (NEGATIVE)
[2018-06-19 06:02] LABS: PHENCYCLIDINE SCREEN,URINE NEGATIVE (NEGATIVE)
[2018-06-19] MEDS ORDERED: LISINOPRIL 10 MG TABLET PO ONE (06:15)
[2018-06-19] MEDS ORDERED: AmLODIPine BESYLATE 5 MG TABLET PO ONE (06:15)
[2018-06-19] MEDS ORDERED: BENZONATATE 100 MG CAPSULE PO ONE (06:30)
[2018-06-19] MEDS ORDERED: IBUPROFEN 600 MG TABLET PO ONE (06:30)
[2018-06-19 07:31] VITALS: BP 163/74
== END 2018-06-19 07:54 | disposition home or self-care (01) ==
LOC: EMS 03:00
DX: J11.1 Influenza due to unidentified influenza virus with other respiratory manifestations (principal); R07.89 Other chest pain; F15.10 Other stimulant abuse, uncomplicated; I10 Essential (primary) hypertension; E78.00 Pure hypercholesterolemia, unspecified; F31.9 Bipolar disorder, unspecified; F41.9 Anxiety disorder, unspecified; J45.909 Unspecified asthma, uncomplicated; F20.9 Schizophrenia, unspecified; F17.210 Nicotine dependence, cigarettes, uncomplicated; Z88.5 Allergy status to narcotic agent; Z88.8 Allergy status to other drugs, medicaments and biological substances; Z79.899 Other long term (current) drug therapy; Z59.0 Homelessness
CPT/HCPCS: 93005; 99406

== ENCOUNTER 2018-07-23 01:03 | Emergency (ER) | payer SELFPAY ==
[~2018-07-23] VITALS: Ht 175.3 cm; Wt 79.5 kg
[~2018-07-23 01:03] MED LIST changes: -CIPOTIC; -DOXY100C PO
[2018-07-23 02:25] VITALS: BP 157/106
== END 2018-07-23 04:00 | disposition left against medical advice (07) ==
LOC: EMS 01:03
DX: R11.2 Nausea with vomiting, unspecified (principal); Z53.21 Procedure and treatment not carried out due to patient leaving prior to being seen by health care provider

== ENCOUNTER 2020-06-04 04:54 | Emergency (ER) | payer OTHER ==
[~2020-06-04] VITALS: Ht 172.7 cm; Wt 86.4 kg
[2020-06-04 08:25] VITALS: BP 148/100
== END 2020-06-04 09:01 | disposition short-term general hospital (02) ==
LOC: EMS 04:55
DX: F25.9 Schizoaffective disorder, unspecified (principal); M79.10 Myalgia, unspecified site; F41.9 Anxiety disorder, unspecified; J45.909 Unspecified asthma, uncomplicated; F31.9 Bipolar disorder, unspecified; E78.00 Pure hypercholesterolemia, unspecified; I10 Essential (primary) hypertension; F19.90 Other psychoactive substance use, unspecified, uncomplicated; Z59.0 Homelessness; Z88.5 Allergy status to narcotic agent; Z88.8 Allergy status to other drugs, medicaments and biological substances
CPT/HCPCS: 99283; 99285

== ENCOUNTER 2020-06-17 01:07 | Emergency (ER) | payer OTHER ==
[2020-06-17] MEDS ORDERED: ACETAMINOPHEN 500 MG TABLET PO ONE (01:45)
[2020-06-17] MEDS ORDERED: LABETALOL HCL 5 MG/ML 20 ML VIAL IVP ONE (01:45)
[2020-06-17] MEDS ORDERED: DiphenhydrAMINE HCL 50 MG/ML VIAL IVP STA (03:06)
[2020-06-17] MEDS ORDERED: METOCLOPRAMIDE HCL 5 MG/ML 2 ML VIAL IVP ONE (03:15)
[2020-06-17] MEDS ORDERED: KETOROLAC TROMETHAMINE 30 MG/ML VIAL IVP ONE (03:15)
[2020-06-17 04:30] VITALS: BP 141/76
== END 2020-06-17 04:40 | disposition home or self-care (01) ==
LOC: EMS 01:09
DX: F25.9 Schizoaffective disorder, unspecified (principal); R51.9 Headache, unspecified; I10 Essential (primary) hypertension; E78.00 Pure hypercholesterolemia, unspecified; F32.9 Major depressive disorder, single episode, unspecified; J45.909 Unspecified asthma, uncomplicated; Z59.0 Homelessness
CPT/HCPCS: 70450; 96374; 96375; 99285; J1200; J1885; J2765; J3490

== ENCOUNTER 2021-01-09 01:42 | Emergency (ER) | payer OTHER ==
[2021-01-09 03:56] LABS: COVID AG,FIA SOURCE NASOPHARYNGEAL
[2021-01-09] MEDS ORDERED: ACETAMINOPHEN 500 MG TABLET PO ONE (04:00)
[2021-01-09] MEDS ORDERED: LORazepam 1 MG TABLET PO ONE (04:15)
[2021-01-09 05:30] VITALS: BP 191/108
== END 2021-01-09 06:01 | disposition home or self-care (01) ==
LOC: EMS 01:46
DX: F20.9 Schizophrenia, unspecified (principal); F15.10 Other stimulant abuse, uncomplicated; R50.9 Fever, unspecified; J45.909 Unspecified asthma, uncomplicated; F31.9 Bipolar disorder, unspecified; E78.00 Pure hypercholesterolemia, unspecified; I10 Essential (primary) hypertension; F41.9 Anxiety disorder, unspecified; Z20.822 Contact with and (suspected) exposure to COVID-19; Z59.0 Homelessness; Z88.5 Allergy status to narcotic agent
CPT/HCPCS: 99283

== ENCOUNTER 2021-01-09 10:18 | Emergency (ER) | payer OTHER ==
[~2021-01-09] VITALS: Ht 157.5 cm; Wt 72.7 kg
[2021-01-09 10:22] VITALS: BP 146/87
[2021-01-09] MEDS ORDERED: ACETAMINOPHEN 500 MG TABLET PO ONE (12:00)
== END 2021-01-09 12:41 | disposition home or self-care (01) ==
LOC: EMS 10:18
DX: F15.10 Other stimulant abuse, uncomplicated (principal); F25.9 Schizoaffective disorder, unspecified; I10 Essential (primary) hypertension; E78.00 Pure hypercholesterolemia, unspecified; F32.9 Major depressive disorder, single episode, unspecified; J45.909 Unspecified asthma, uncomplicated; F17.210 Nicotine dependence, cigarettes, uncomplicated; Z59.0 Homelessness; Z88.6 Allergy status to analgesic agent
CPT/HCPCS: 99282; Z7502; Z7610

== ENCOUNTER 2021-01-10 05:57 | Emergency (ER) | payer OTHER ==
[~2021-01-10] VITALS: Ht 172.7 cm; Wt 81.8 kg
[2021-01-10] MEDS ORDERED: 0.9% SODIUM CHLORIDE 10 ML SYRINGE IVP PRN (06:15)
[2021-01-10] MEDS ORDERED: SODIUM CHLORIDE 0.9% 1,000 ML IV ONE (06:15)
[2021-01-10] MEDS ORDERED: ACETAMINOPHEN 500 MG TABLET PO ONE (06:15)
[2021-01-10] MEDS ORDERED: LORazepam 1 MG TABLET PO ONE (06:30)
[2021-01-10 06:48] LABS: COVID AG,FIA SOURCE NASOPHARYNGEAL
[2021-01-10 06:55] LABS: BASOPHILS % (AUTO) 0.9 % (0.0-2.0); EOSINOPHILS % (AUTO) 0.1 % (1.0-6.0); HEMOGLOBIN 14.9 g/dL (13.5-17.5); LYMPHOCYTES # (AUTO) 0.6 K/uL (1.0-4.8); MEAN CORPUSCULAR HEMOGLOBIN 30.9 pg (26.0-34.0); MEAN CORPUSCULAR HGB CONC 33.8 G/dL (31.0-37.0); MEAN CORPUSCULAR VOLUME 91 fL (80-100); MONOCYTES # (AUTO) 0.9 K/uL (0.1-1.0); MONOCYTES % (AUTO) 11.5 % (2.0-9.0); NEUTROPHILS # (AUTO) 6.3 K/uL (1.8-7.7); NEUTROPHILS % (AUTO) 79.5 % (40.0-70.0); PLATELET COUNT (AUTO) 208 K/uL (150-450); RED BLOOD CELL COUNT(AUTO) 4.83 MIL/uL (4.50-5.90)
[2021-01-10 07:06] LABS: ANION GAP 10 mmol/L (8-16); CALCIUM, TOTAL 8.1 mg/dL (8.8-10.5); CARBON DIOXIDE 28 mmol/L (22-29); CHLORIDE 97 mmol/L (98-107); CREATININE 1.16 mg/dL (0.60-1.30); GLOMERULAR FILTR. RATE CALC > 60 mL/min (>60); GLUCOSE,RANDOM 107 mg/dL (70-110); POTASSIUM 3.7 mmol/L (3.5-5.1); SODIUM SERUM 135 mmol/L (136-145); UREA NITROGEN, BLOOD 17 mg/dL (7-18)
[2021-01-10 07:15] LABS: LACTIC ACID 1.2 mmol/L (0.4-2.0)
[2021-01-10 07:18] LABS: ALANINE AMINOTRANSFERASE 110 U/L (12-78); ALBUMIN 3.6 g/dL (3.4-5.0); ALKALINE PHOSPHATASE 57 U/L (46-116); ASPARTATE AMINOTRANSFERASE 75 U/L (15-37); BILIRUBIN,TOTAL 0.6 mg/dL (0.1-1.0); HCG,QUANTITATIVE 1 mIU/mL (0-6); LACTATE DEHYDROGENASE 309 U/L (85-227); TOTAL PROTEIN, SERUM 8.3 g/dL (6.4-8.2)
[2021-01-10 07:42] LABS: AMPHET/METH SCREEN,URINE POSITIVE (NEGATIVE); BARBITURATE SCREEN, URINE NEGATIVE (NEGATIVE); BENZODIAZEPINES SCREEN,URINE NEGATIVE (NEGATIVE); CANNABINOID SCREEN,URINE POSITIVE (NEGATIVE); COCAINE SCREEN,URINE NEGATIVE (NEGATIVE); METHADONE SCREEN, URINE NEGATIVE (NEGATIVE); OPIATE SCREEN,URINE NEGATIVE (NEGATIVE)
[2021-01-10 07:43] LABS: PHENCYCLIDINE SCREEN,URINE NEGATIVE (NEGATIVE)
[2021-01-10] MEDS ORDERED: KETOROLAC TROMETHAMINE 30 MG/ML VIAL IVP ONE (08:00)
[2021-01-10 10:28] VITALS: BP 125/79
== END 2021-01-10 10:45 | disposition home or self-care (01) ==
LOC: EMS 05:58
DX: J06.9 Acute upper respiratory infection, unspecified (principal); J45.909 Unspecified asthma, uncomplicated; I10 Essential (primary) hypertension; F32.9 Major depressive disorder, single episode, unspecified; E78.00 Pure hypercholesterolemia, unspecified; F20.9 Schizophrenia, unspecified; M54.9 Dorsalgia, unspecified; F17.210 Nicotine dependence, cigarettes, uncomplicated; Z20.822 Contact with and (suspected) exposure to COVID-19; Z59.0 Homelessness; Z88.4 Allergy status to anesthetic agent
CPT/HCPCS: 36415; 71045; 80053; 80307; 83605; 83615; 84145; 84702; 85025; 85730; 87040; 87426; 93005; 96361; 96374; 99285; G0480; J1885; J7030; U0003

== ENCOUNTER 2021-04-07 01:47 | Emergency (ER) | payer OTHER ==
[~2021-04-07] VITALS: Ht 180.3 cm; Wt 81.8 kg
[2021-04-07 02:20] LABS: COVID AG,FIA SOURCE NASOPHARYNGEAL
[2021-04-07] MEDS ORDERED: ACETAMINOPHEN 500 MG TABLET PO ONE (02:30)
[2021-04-07] MEDS ORDERED: IBUPROFEN 800 MG TABLET PO ONE (02:30)
[2021-04-07] MEDS ORDERED: CloNIDine HCL 0.1 MG TABLET PO ONE (02:30)
[2021-04-07 02:46] LABS: INFLUENZA TYPE A NEGATIVE FOR TYPE A (NEGATIVE); INFLUENZA TYPE B NEGATIVE FOR TYPE B (NEGATIVE)
[2021-04-07 04:11] VITALS: BP 136/89
== END 2021-04-07 06:23 | disposition home or self-care (01) ==
LOC: EDUNIT# 01:47 → EMS 01:48
DX: J06.9 Acute upper respiratory infection, unspecified (principal); I10 Essential (primary) hypertension; E78.00 Pure hypercholesterolemia, unspecified; F41.9 Anxiety disorder, unspecified; J45.909 Unspecified asthma, uncomplicated; F31.9 Bipolar disorder, unspecified; F20.9 Schizophrenia, unspecified; F15.90 Other stimulant use, unspecified, uncomplicated; F17.210 Nicotine dependence, cigarettes, uncomplicated; Z88.5 Allergy status to narcotic agent; Z88.8 Allergy status to other drugs, medicaments and biological substances; Z20.822 Contact with and (suspected) exposure to COVID-19
CPT/HCPCS: 87426; 87804; 99284; U0003; Z7502; Z7610

== ENCOUNTER 2021-05-19 17:27 | Emergency (ER) | payer OTHER ==
[~2021-05-19] VITALS: Ht 175.3 cm; Wt 95.5 kg
[2021-05-19] MEDS ORDERED: ACETAMINOPHEN 500 MG TABLET PO ONE (18:30)
[2021-05-19] MEDS ORDERED: ONDANSETRON HCL 4 MG/2 ML VIAL IVP ONE (18:30)
[2021-05-19 18:44] LABS: COVID AG,FIA SOURCE NASOPHARYNGEAL
[2021-05-19 20:00] LABS: INFLUENZA TYPE A NEGATIVE FOR TYPE A (NEGATIVE); INFLUENZA TYPE B NEGATIVE FOR TYPE B (NEGATIVE)
[2021-05-19] MEDS ORDERED: CloNIDine HCL 0.1 MG TABLET PO ONE (20:15)
[2021-05-19] MEDS ORDERED: LORazepam 1 MG TABLET PO ONE (20:15)
[2021-05-19] MEDS: OXYGEN THERAPY IH SCH (20:26)
[2021-05-19 20:32] LABS: BASOPHILS % (AUTO) 1.4 % (0.0-2.0); EOSINOPHILS % (AUTO) 4.8 % (1.0-6.0); LYMPHOCYTES # (AUTO) 0.4 K/uL (1.0-4.8); LYMPHOCYTES % (AUTO) 5.8 % (22.0-44.0); MEAN CORPUSCULAR HEMOGLOBIN 30.3 pg (26.0-34.0); MEAN CORPUSCULAR VOLUME 89 fL (80-100); MONOCYTES % (AUTO) 15.5 % (2.0-9.0); NEUTROPHILS # (AUTO) 4.8 K/uL (1.8-7.7); NEUTROPHILS % (AUTO) 72.5 % (40.0-70.0); PLATELET COUNT (AUTO) 210 K/uL (150-450); RED BLOOD CELL COUNT(AUTO) 4.61 MIL/uL (4.50-5.90); RED CELL DISTRIBUTION WIDTH 13.3 % (11.5-14.5)
[2021-05-19 20:43] LABS: ANION GAP 8 mmol/L (8-16); CALCIUM, TOTAL 8.4 mg/dL (8.8-10.5); CARBON DIOXIDE 28 mmol/L (22-29); CHLORIDE 101 mmol/L (98-107); CREATININE 1.23 mg/dL (0.60-1.30); GLOMERULAR FILTR. RATE CALC > 60 mL/min (>60); GLUCOSE,RANDOM 105 mg/dL (70-110); POTASSIUM 3.7 mmol/L (3.5-5.1); SODIUM SERUM 137 mmol/L (136-145); UREA NITROGEN, BLOOD 21 mg/dL (7-18)
[2021-05-19 20:48] LABS: ALANINE AMINOTRANSFERASE 59 U/L (12-78); ALBUMIN 3.3 g/dL (3.4-5.0); ALKALINE PHOSPHATASE 62 U/L (46-116); ASPARTATE AMINOTRANSFERASE 47 U/L (15-37); BILIRUBIN,TOTAL 0.5 mg/dL (0.1-1.0); TOTAL PROTEIN, SERUM 7.7 g/dL (6.4-8.2)
[2021-05-19] MEDS ORDERED: LABETALOL HCL 5 MG/ML 20 ML VIAL IVP ONE (21:15)
[2021-05-19] MEDS ORDERED: LORazepam 2 MG/ML VIAL IVP ONE (21:15)
[2021-05-19 21:27] LABS: B-TYPE NATRIURETIC PEPTIDE 457 pg/mL (0-100)
[2021-05-19] MEDS ORDERED: NITROGLYCERIN 2% (1 GM=INCH) PACKET TP ONE (21:45)
[2021-05-19] MEDS ORDERED: ASPIRIN 325 MG TABLET PO ONE (21:45)
[2021-05-19] MEDS ORDERED: ACETAMINOPHEN 325 MG TABLET PO PRN (22:45)
[2021-05-19] MEDS ORDERED: ONDANSETRON HCL 4 MG/2 ML VIAL IVP PRN (22:45)
[2021-05-19] MEDS ORDERED: LABETALOL HCL 5 MG/ML 20 ML VIAL IVP PRN (22:45)
[2021-05-19] MEDS ORDERED: FUROSEMIDE 20 MG/2 ML VIAL IVP ONE (22:45)
[2021-05-20] MEDS ORDERED: HEPARIN SODIUM 25000 UNITS/D5W 250 ML IV PRN (04:15)
[2021-05-20] MEDS ORDERED: HEPARIN SODIUM,PORCINE 5,000 UNITS/ML VIAL IVP ONE (04:15)
[2021-05-20] MEDS ORDERED: HEPARIN SODIUM,PORCINE 5,000 UNITS/ML VIAL IVP PRN ×2 (04:15)
[2021-05-20 05:10] LABS: PROTHROMBIN TIME 10.7 SEC (9.4-11.6)
[2021-05-20] MEDS ORDERED: ATORVASTATIN CALCIUM 40 MG TABLET PO ONE (05:15)
[2021-05-20] MEDS: OXYGEN THERAPY IH SCH (07:13)
[2021-05-20] MEDS ORDERED: ASPIRIN 81 MG CHEWABLE TABLET PO SCH (08:00)
[2021-05-20 08:10] LABS: BASOPHILS % (AUTO) 0.9 % (0.0-2.0); HEMATOCRIT 42.4 % (41-53); HEMOGLOBIN 14.4 g/dL (13.5-17.5); LYMPHOCYTES # (AUTO) 0.4 K/uL (1.0-4.8); LYMPHOCYTES % (AUTO) 6.6 % (22.0-44.0); MEAN CORPUSCULAR HEMOGLOBIN 30.4 pg (26.0-34.0); MEAN CORPUSCULAR HGB CONC 33.9 G/dL (31.0-37.0); MEAN CORPUSCULAR VOLUME 90 fL (80-100); MONOCYTES # (AUTO) 0.7 K/uL (0.1-1.0); MONOCYTES % (AUTO) 11.5 % (2.0-9.0); PLATELET COUNT (AUTO) 189 K/uL (150-450); RED BLOOD CELL COUNT(AUTO) 4.72 MIL/uL (4.50-5.90); RED CELL DISTRIBUTION WIDTH 13.4 % (11.5-14.5)
[2021-05-20 08:19] LABS: CALCIUM, TOTAL 8.3 mg/dL (8.8-10.5); CREATININE 1.39 mg/dL (0.60-1.30)
[2021-05-20] MEDS: NITROGLYCERIN 2% (1 GM=INCH) PACKET TP SCH ×3 (08:32→15:06)
[2021-05-20] MEDS ORDERED: FUROSEMIDE 20 MG/2 ML VIAL IVP SCH (09:00)
[2021-05-20 13:20] LABS: FREE T4 (FREE THYROXINE) 1.24 ng/dL (0.76-1.46); THYROID STIMULATING HORMONE 0.32 uIU/mL (0.36-3.74)
[2021-05-20 15:00] VITALS: BP 151/91
[2021-05-21] MEDS ORDERED: ATORVASTATIN CALCIUM 40 MG TABLET PO SCH (09:00)
== END 2021-05-20 15:45 | disposition left against medical advice (07) ==
LOC: EMS 17:30
DX: U07.1 COVID-19 (principal); R77.8 Other specified abnormalities of plasma proteins; R07.89 Other chest pain; F15.10 Other stimulant abuse, uncomplicated; F31.9 Bipolar disorder, unspecified; F41.9 Anxiety disorder, unspecified; I10 Essential (primary) hypertension; E78.00 Pure hypercholesterolemia, unspecified; F20.9 Schizophrenia, unspecified; F17.210 Nicotine dependence, cigarettes, uncomplicated; Z88.5 Allergy status to narcotic agent; Z88.8 Allergy status to other drugs, medicaments and biological substances
CPT/HCPCS: 36415; 70450 ×2; 71045; 80048; 80053; 83735; 83880; 84439; 84443; 84484; 85025; 85610; 85730; 87426; 87804; 93005; 93306; 96365; 96366; 96375 ×2; 96376; 99291; G0480; J1644 ×2; J1940; J2060; J2405 ×2; J3490 ×2; U0003

== ENCOUNTER 2021-05-20 18:36 | Emergency (ER) | payer OTHER ==
[2021-05-20 21:10] LABS: BASOPHILS % (AUTO) 0.7 % (0.0-2.0); EOSINOPHILS % (AUTO) 0.3 % (1.0-6.0); HEMATOCRIT 41.2 % (41-53); LYMPHOCYTES # (AUTO) 0.8 K/uL (1.0-4.8); LYMPHOCYTES % (AUTO) 15.4 % (22.0-44.0); MEAN CORPUSCULAR HEMOGLOBIN 30.5 pg (26.0-34.0); MEAN CORPUSCULAR HGB CONC 34.1 G/dL (31.0-37.0); MEAN CORPUSCULAR VOLUME 90 fL (80-100); MONOCYTES # (AUTO) 0.9 K/uL (0.1-1.0); MONOCYTES % (AUTO) 17.4 % (2.0-9.0); NEUTROPHILS # (AUTO) 3.5 K/uL (1.8-7.7); NEUTROPHILS % (AUTO) 66.2 % (40.0-70.0); PLATELET COUNT (AUTO) 190 K/uL (150-450); RED BLOOD CELL COUNT(AUTO) 4.61 MIL/uL (4.50-5.90); RED CELL DISTRIBUTION WIDTH 13.5 % (11.5-14.5)
[2021-05-20 21:28] LABS: ANION GAP 6 mmol/L (8-16); CALCIUM, TOTAL 8.2 mg/dL (8.8-10.5); CARBON DIOXIDE 29 mmol/L (22-29); CHLORIDE 98 mmol/L (98-107); CREATININE 1.43 mg/dL (0.60-1.30); GLOMERULAR FILTR. RATE CALC 53 mL/min (>60); GLUCOSE,RANDOM 119 mg/dL (70-110); POTASSIUM 3.8 mmol/L (3.5-5.1); SODIUM SERUM 133 mmol/L (136-145); UREA NITROGEN, BLOOD 24 mg/dL (7-18)
[2021-05-20] MEDS ORDERED: ACETAMINOPHEN 500 MG TABLET PO ONE (21:30)
[2021-05-20 21:34] LABS: ALANINE AMINOTRANSFERASE 70 U/L (12-78); ALBUMIN 3.1 g/dL (3.4-5.0); ALKALINE PHOSPHATASE 64 U/L (46-116); ASPARTATE AMINOTRANSFERASE 64 U/L (15-37); BILIRUBIN,TOTAL 0.3 mg/dL (0.1-1.0); LIPASE 96 U/L (73-393); TOTAL PROTEIN, SERUM 7.4 g/dL (6.4-8.2)
[2021-05-20 21:37] LABS: LACTIC ACID 0.6 mmol/L (0.4-2.0)
== END 2021-05-20 21:15 | disposition left against medical advice (07) ==
LOC: EMS 18:38
DX: I21.4 Non-ST elevation (NSTEMI) myocardial infarction (principal); F25.9 Schizoaffective disorder, unspecified; F15.10 Other stimulant abuse, uncomplicated; I10 Essential (primary) hypertension; E78.00 Pure hypercholesterolemia, unspecified; J45.909 Unspecified asthma, uncomplicated; F41.9 Anxiety disorder, unspecified; F31.9 Bipolar disorder, unspecified; F17.210 Nicotine dependence, cigarettes, uncomplicated; Z91.14 Patient's other noncompliance with medication regimen; Z88.5 Allergy status to narcotic agent; Z88.8 Allergy status to other drugs, medicaments and biological substances
CPT/HCPCS: 36415; 71045; 80053; 83605; 83690; 84484; 85025; 87040; 99284; G0480; 93005

== ENCOUNTER 2021-05-23 00:48 | Inpatient (IN) | payer OTHER ==
[~2021-05-23] VITALS: Ht 172.7 cm; Wt 75.0 kg
[2021-05-23] MEDS ORDERED: 0.9% SODIUM CHLORIDE 10 ML SYRINGE IVP PRN ×2 (01:30→04:30)
[2021-05-23] MEDS ORDERED: SODIUM CHLORIDE 0.9% 1,000 ML IV ONE (01:30)
[2021-05-23] MEDS ORDERED: ACETAMINOPHEN 500 MG TABLET PO ONE (01:30)
[2021-05-23 01:50] LABS: BASOPHILS % (AUTO) 0.5 % (0.0-2.0); EOSINOPHILS % (AUTO) 0 % (1.0-6.0); HEMATOCRIT 43.5 % (41-53); HEMOGLOBIN 14.8 g/dL (13.5-17.5); LYMPHOCYTES # (AUTO) 0.5 K/uL (1.0-4.8); LYMPHOCYTES % (AUTO) 9.9 % (22.0-44.0); MEAN CORPUSCULAR HEMOGLOBIN 30.1 pg (26.0-34.0); MEAN CORPUSCULAR VOLUME 89 fL (80-100); MONOCYTES # (AUTO) 0.7 K/uL (0.1-1.0); NEUTROPHILS # (AUTO) 3.8 K/uL (1.8-7.7); NEUTROPHILS % (AUTO) 76.6 % (40.0-70.0); PLATELET COUNT (AUTO) 175 K/uL (150-450); RED BLOOD CELL COUNT(AUTO) 4.91 MIL/uL (4.50-5.90); RED CELL DISTRIBUTION WIDTH 13.1 % (11.5-14.5)
[2021-05-23 01:56] LABS: ANION GAP 9 mmol/L (8-16); CALCIUM, TOTAL 8.1 mg/dL (8.8-10.5); CARBON DIOXIDE 27 mmol/L (22-29); CHLORIDE 94 mmol/L (98-107); CREATININE 1.26 mg/dL (0.60-1.30); D-DIMER 0.46 mg/L FEU (0.00-0.50); GLOMERULAR FILTR. RATE CALC > 60 mL/min (>60); GLUCOSE,RANDOM 121 mg/dL (70-110); PROTHROMBIN TIME 10.7 SEC (9.4-11.6); SODIUM SERUM 130 mmol/L (136-145); UREA NITROGEN, BLOOD 18 mg/dL (7-18)
[2021-05-23 02:00] LABS: APPEARANCE,URINE CLEAR (CLEAR); BILIRUBIN,URINE NEGATIVE (NEGATIVE); GLUCOSE, URINE (UA) NEGATIVE (NEGATIVE); KETONES,URINE NEGATIVE (NEGATIVE); LEUKOCYTE ESTERASE ,URINE NEGATIVE (NEGATIVE); NITRATE,URINE NEGATIVE (NEGATIVE); OCCULT BLOOD,URINE TRACE (NEGATIVE); PH,URINE 7.5 (5.0-8.0); PROTEIN,URINE POS 1+ (NEGATIVE)
[2021-05-23 02:02] LABS: LACTIC ACID 0.4 mmol/L (0.4-2.0)
[2021-05-23 02:04] LABS: BACTERIA,URINE Rare /HPF (None Seen); WBC,URINE 0-2 /HPF (0-5)
[2021-05-23 02:12] LABS: B-TYPE NATRIURETIC PEPTIDE 308 pg/mL (0-100)
[2021-05-23 02:18] LABS: ALANINE AMINOTRANSFERASE 59 U/L (12-78); ALBUMIN 3.3 g/dL (3.4-5.0); ALKALINE PHOSPHATASE 60 U/L (46-116); ASPARTATE AMINOTRANSFERASE 52 U/L (15-37); BILIRUBIN,TOTAL 0.3 mg/dL (0.1-1.0); C-REACTIVE PROTEIN QUANT 0.82 mg/dL (0.00-0.30); CREATINE KINASE, TOTAL ONLY 328 U/L (39-308); FERRITIN 396 ng/mL (26-388); PHOSPHORUS 2.5 mg/dL (2.5-4.9); TOTAL PROTEIN, SERUM 8.2 g/dL (6.4-8.2)
[2021-05-23] MEDS ORDERED: ASPIRIN 325 MG TABLET PO ONE (02:45)
[2021-05-23] MEDS ORDERED: FAMOTIDINE 10 MG/ML 2 ML VIAL IVP ONE (02:45)
[2021-05-23 03:05] LABS: AMPHET/METH SCREEN,URINE POSITIVE (NEGATIVE); BARBITURATE SCREEN, URINE NEGATIVE (NEGATIVE); BENZODIAZEPINES SCREEN,URINE NEGATIVE (NEGATIVE); CANNABINOID SCREEN,URINE POSITIVE (NEGATIVE); COCAINE SCREEN,URINE NEGATIVE (NEGATIVE); METHADONE SCREEN, URINE NEGATIVE (NEGATIVE); OPIATE SCREEN,URINE NEGATIVE (NEGATIVE)
[2021-05-23 03:07] LABS: COVID AG,FIA SOURCE NASAL SWAB
[2021-05-23 03:29] LABS: PHENCYCLIDINE SCREEN,URINE NEGATIVE (NEGATIVE)
[2021-05-23 03:36] LABS: INFLUENZA TYPE A NEGATIVE FOR TYPE A (NEGATIVE); INFLUENZA TYPE B NEGATIVE FOR TYPE B (NEGATIVE)
[2021-05-23] MEDS ORDERED: MAGNESIUM SULFATE 1 GM in DEXTROSE 5%-WATER 50 ML IV ONE (04:00)
[2021-05-23] MEDS ORDERED: ONDANSETRON HCL 4 MG/2 ML VIAL IVP PRN ×2 (04:30→04:45)
[2021-05-23] MEDS ORDERED: AZITHROMYCIN 500 MG/NS 250 ML IV ONE (04:30)
[2021-05-23] MEDS ORDERED: ACETAMINOPHEN 325 MG TABLET PO PRN (04:30)
[2021-05-23] MEDS ORDERED: CefTRIAXone 1 GM/DEXTROSE 50 ML IV ONE (04:30)
[2021-05-23] MEDS ORDERED: MAGNESIUM SULFATE 2 GM/WATER 50 ML IV PRN (05:00)
[2021-05-23] MEDS ORDERED: MAGNESIUM SULFATE 4 GM/WATER 100 ML IV PRN (05:00)
[2021-05-23] MEDS ORDERED: MAGNESIUM OXIDE 400 MG TABLET PO PRN (05:00)
[2021-05-23] MEDS: FUROSEMIDE 20 MG/2 ML VIAL IVP SCH ×2 (07:36→20:22)
[2021-05-23] MEDS ORDERED: HEPARIN SODIUM,PORCINE 5,000 UNITS/ML VIAL SQ SCH (08:00)
[2021-05-23] MEDS: ENOXAPARIN SODIUM 100 MG/ML PF SYRINGE SQ SCH ×2 (10:51→21:27)
[2021-05-23] MEDS: ACETAMINOPHEN 325 MG TABLET PO PRN (21:15)
[2021-05-24] MEDS: CefTRIAXone 1 GM/DEXTROSE 50 ML IV SCH (05:25)
[2021-05-24] MEDS: FUROSEMIDE 20 MG/2 ML VIAL IVP SCH ×2 (08:55→21:02)
[2021-05-24] MEDS: AZITHROMYCIN 250 MG TABLET PO SCH (08:55)
[2021-05-24] MEDS: ENOXAPARIN SODIUM 100 MG/ML PF SYRINGE SQ SCH ×2 (08:56→21:00)
[2021-05-24 10:23] VITALS: BP 154/97
[2021-05-24 11:14] VITALS: BP 148/92
[2021-05-24] MEDS ORDERED: INFLUENZA VIRUS VACCINE QVS 2021-22 (6MO+)/PF 60 MCG/0.5 ML SYRINGE IM. ONE (11:30)
[2021-05-24] MEDS ORDERED: ATORVASTATIN CALCIUM 40 MG TABLET PO SCH (13:30)
[2021-05-24] MEDS: CARVEDILOL 12.5 MG TABLET PO SCH ×2 (15:40→21:02)
[2021-05-24] MEDS: METOPROLOL SUCCINATE 25 MG ER TABLET PO SCH (15:40)
[2021-05-24 15:52] VITALS: BP 152/95
[2021-05-24] MEDS: ACETAMINOPHEN 325 MG TABLET PO PRN (15:59)
[2021-05-24 20:15] VITALS: BP 155/84
[2021-05-24] MEDS: ATORVASTATIN CALCIUM 40 MG TABLET PO SCH (21:02)
[2021-05-25] VITALS (10 sets, daily range): BP systolic 123–156; BP diastolic 80–96
[2021-05-25] MEDS: ACETAMINOPHEN 325 MG TABLET PO PRN ×3 (01:33→23:58)
[2021-05-25] MEDS ORDERED: SODIUM CHLORIDE 0.9% 500 ML IV ONE ×2 (05:01→09:45)
[2021-05-25] MEDS: CefTRIAXone 1 GM/DEXTROSE 50 ML IV SCH (05:04)
[2021-05-25 07:07] LABS: ANION GAP 6 mmol/L (8-16); CALCIUM, TOTAL 8.5 mg/dL (8.8-10.5); CARBON DIOXIDE 29 mmol/L (22-29); CHLORIDE 99 mmol/L (98-107); CREATININE 1.18 mg/dL (0.60-1.30); GLOMERULAR FILTR. RATE CALC > 60 mL/min (>60); GLUCOSE,RANDOM 94 mg/dL (70-110); POTASSIUM 4.2 mmol/L (3.5-5.1); SODIUM SERUM 134 mmol/L (136-145); UREA NITROGEN, BLOOD 25 mg/dL (7-18)
[2021-05-25] MEDS ORDERED: IOHEXOL 300 MG/ML 50 ML VIAL ONE (08:17)
[2021-05-25] MEDS ORDERED: IOHEXOL 300 MG/ML 150 ML VIAL ONE (08:17)
[2021-05-25] MEDS ORDERED: SODIUM BICARBONATE 50 MEQ/50 ML VIAL ONE (08:17)
[2021-05-25] MEDS ORDERED: IOHEXOL 300 MG/ML 100 ML VIAL ONE (08:17)
[2021-05-25] MEDS ORDERED: LIDOCAINE/PF 1% 30 ML VIAL ONE (08:17)
[2021-05-25] MEDS ORDERED: HEPARIN SODIUM 1000 UNITS/NS 1,000 ML ONE (08:17)
[2021-05-25] MEDS ORDERED: FentaNYL CITRATE PF 100 MCG/2 ML VIAL ONE (09:01)
[2021-05-25] MEDS ORDERED: MIDAZOLAM HCL 2 MG/2 ML VIAL ONE (09:02)
[2021-05-25] MEDS ORDERED: HEPARIN SODIUM 1000 UNITS/NS 1,000 ML IARTER ONE (09:45)
[2021-05-25] MEDS ORDERED: IOHEXOL 300 MG/ML 150 ML VIAL IARTER ONE (09:45)
[2021-05-25] MEDS ORDERED: LIDOCAINE 1% 30 ML/SOD BICARB 8.4% 4 ML SQ ONE (09:45)
[2021-05-25] MEDS ORDERED: MIDAZOLAM HCL 2 MG/2 ML VIAL IVP ONE (09:45)
[2021-05-25] MEDS ORDERED: FentaNYL CITRATE PF 100 MCG/2 ML VIAL IVP ONE (09:45)
[2021-05-25] MEDS: CARVEDILOL 12.5 MG TABLET PO SCH ×2 (11:57→20:49)
[2021-05-25] MEDS: FUROSEMIDE 20 MG/2 ML VIAL IVP SCH ×2 (11:57→20:49)
[2021-05-25] MEDS: AZITHROMYCIN 250 MG TABLET PO SCH (11:58)
[2021-05-25] MEDS: LISINOPRIL 10 MG TABLET PO SCH (11:58)
[2021-05-25] MEDS: METOPROLOL SUCCINATE 25 MG ER TABLET PO SCH (11:58)
[2021-05-25] MEDS: ATORVASTATIN CALCIUM 40 MG TABLET PO SCH (20:49)
[2021-05-26] VITALS: BP 149/67
[2021-05-26 03:45] VITALS: BP 133/60
[2021-05-26 04:00] VITALS: BP 130/30
[2021-05-26] MEDS: CefTRIAXone 1 GM/DEXTROSE 50 ML IV SCH (05:14)
[2021-05-26] MEDS: ACETAMINOPHEN 325 MG TABLET PO PRN (06:22)
[2021-05-26 07:22] LABS: BASOPHILS % (AUTO) 0.8 % (0.0-2.0); EOSINOPHILS % (AUTO) 1.4 % (1.0-6.0); HEMATOCRIT 44.4 % (41-53); HEMOGLOBIN 15.4 g/dL (13.5-17.5); LYMPHOCYTES # (AUTO) 0.8 K/uL (1.0-4.8); LYMPHOCYTES % (AUTO) 27.6 % (22.0-44.0); MEAN CORPUSCULAR HEMOGLOBIN 30.8 pg (26.0-34.0); MEAN CORPUSCULAR HGB CONC 34.6 G/dL (31.0-37.0); MEAN CORPUSCULAR VOLUME 89 fL (80-100); MONOCYTES # (AUTO) 0.5 K/uL (0.1-1.0); MONOCYTES % (AUTO) 17.7 % (2.0-9.0); NEUTROPHILS # (AUTO) 1.6 K/uL (1.8-7.7); NEUTROPHILS % (AUTO) 52.5 % (40.0-70.0); PLATELET COUNT (AUTO) 189 K/uL (150-450); RED CELL DISTRIBUTION WIDTH 12.7 % (11.5-14.5)
[2021-05-26 07:30] VITALS: BP 146/90
[2021-05-26 07:56] LABS: ALANINE AMINOTRANSFERASE 37 U/L (12-78); ALBUMIN 2.7 g/dL (3.4-5.0); ALKALINE PHOSPHATASE 48 U/L (46-116); ANION GAP 4 mmol/L (8-16); ASPARTATE AMINOTRANSFERASE 37 U/L (15-37); BILIRUBIN,TOTAL 0.3 mg/dL (0.1-1.0); CALCIUM, TOTAL 8.2 mg/dL (8.8-10.5); CARBON DIOXIDE 27 mmol/L (22-29); CHLORIDE 101 mmol/L (98-107); CREATININE 1.18 mg/dL (0.60-1.30); GLOMERULAR FILTR. RATE CALC > 60 mL/min (>60); GLUCOSE,RANDOM 89 mg/dL (70-110); SODIUM SERUM 132 mmol/L (136-145); TOTAL PROTEIN, SERUM 7.3 g/dL (6.4-8.2); UREA NITROGEN, BLOOD 22 mg/dL (7-18)
[2021-05-26 08:00] VITALS: BP 146/90
[2021-05-26] MEDS: CARVEDILOL 12.5 MG TABLET PO SCH (08:52)
[2021-05-26] MEDS: AZITHROMYCIN 250 MG TABLET PO SCH (08:52)
[2021-05-26] MEDS: METOPROLOL SUCCINATE 25 MG ER TABLET PO SCH (08:53)
[2021-05-26] MEDS: LISINOPRIL 10 MG TABLET PO SCH (08:53)
[2021-05-26] MEDS: FUROSEMIDE 20 MG/2 ML VIAL IVP SCH (08:53)
== END 2021-05-26 11:05 | disposition left against medical advice (07) | DRG 190 ==
LOC: EMS 00:49 → 5S 05-24 08:42
PROVIDERS: ADMIT Internal Medicine; ATTEND Internal Medicine
PROC: 4A023N7 Measurement of Cardiac Sampling and Pressure, Left Heart, Percutaneous Approach (ICD-10-PCS; principal; 2021-05-25)
PROC: B2111ZZ Fluoroscopy of Multiple Coronary Arteries using Low Osmolar Contrast (ICD-10-PCS; 2021-05-25)
PROC: B2151ZZ Fluoroscopy of Left Heart using Low Osmolar Contrast (ICD-10-PCS; 2021-05-25)
PROC: B41F1ZZ Fluoroscopy of Right Lower Extremity Arteries using Low Osmolar Contrast (ICD-10-PCS; 2021-05-25)
DX: I21.4 Non-ST elevation (NSTEMI) myocardial infarction (principal); J12.82 Pneumonia due to coronavirus disease 2019; I50.21 Acute systolic (congestive) heart failure; U07.1 COVID-19; J18.9 Pneumonia, unspecified organism; I42.9 Cardiomyopathy, unspecified; E87.1 Hypo-osmolality and hyponatremia; J44.0 Chronic obstructive pulmonary disease with (acute) lower respiratory infection; I13.0 Hypertensive heart and chronic kidney disease with heart failure and stage 1 through stage 4 chronic kidney disease, or unspecified chronic kidney disease; N18.30 Chronic kidney disease, stage 3 unspecified; Z20.822 Contact with and (suspected) exposure to COVID-19; F42.9 Obsessive-compulsive disorder, unspecified; F31.9 Bipolar disorder, unspecified; F20.9 Schizophrenia, unspecified; F17.200 Nicotine dependence, unspecified, uncomplicated; E78.5 Hyperlipidemia, unspecified; F15.10 Other stimulant abuse, uncomplicated; E78.00 Pure hypercholesterolemia, unspecified; Z88.8 Allergy status to other drugs, medicaments and biological substances; Z82.49 Family history of ischemic heart disease and other diseases of the circulatory system; Z88.5 Allergy status to narcotic agent; Z79.899 Other long term (current) drug therapy; Z59.00 Homelessness unspecified
CPT/HCPCS: 71045; 80048; 80053; 81001; 82040; 82550; 82728; 83605; 83735; 83880; 84100; 84145; 84484; 85025; 85379; 85610; 86140; 87040; 87804; 93005; 93308; 99291; G0480; J0456; J0696; J1644; J1650; J1940; J2250; J3010; J3475; J3490; J7040; J7060; Q9967; 36415-L1; 36415-TC; U0003

== ENCOUNTER 2021-10-06 23:49 | Inpatient (IN) | payer OTHER ==
[~2021-10-06] VITALS: Ht 172.7 cm; Wt 81.8 kg
[2021-10-07 01:11] LABS: BASOPHILS % (AUTO) 1.1 % (0.0-2.0); EOSINOPHILS % (AUTO) 4.5 % (1.0-6.0); HEMATOCRIT 41.7 % (41-53); HEMOGLOBIN 14.6 g/dL (13.5-17.5); LYMPHOCYTES # (AUTO) 1.6 K/uL (1.0-4.8); LYMPHOCYTES % (AUTO) 21.1 % (22.0-44.0); MEAN CORPUSCULAR HEMOGLOBIN 30.8 pg (26.0-34.0); MEAN CORPUSCULAR VOLUME 88 fL (80-100); MONOCYTES # (AUTO) 1.1 K/uL (0.1-1.0); MONOCYTES % (AUTO) 14.9 % (2.0-9.0); NEUTROPHILS # (AUTO) 4.3 K/uL (1.8-7.7); NEUTROPHILS % (AUTO) 58.4 % (40.0-70.0); PLATELET COUNT (AUTO) 230 K/uL (150-450); RED BLOOD CELL COUNT(AUTO) 4.74 MIL/uL (4.50-5.90); RED CELL DISTRIBUTION WIDTH 13.5 % (11.5-14.5)
[2021-10-07 01:24] LABS: ANION GAP 8 mmol/L (8-16); CALCIUM, TOTAL 8.6 mg/dL (8.8-10.5); CARBON DIOXIDE 27 mmol/L (22-29); CHLORIDE 99 mmol/L (98-107); CREATININE 2.72 mg/dL (0.60-1.30); GLOMERULAR FILTR. RATE CALC 25 mL/min (>60); GLUCOSE,RANDOM 111 mg/dL (70-110); POTASSIUM 3.8 mmol/L (3.5-5.1); SODIUM SERUM 134 mmol/L (136-145); UREA NITROGEN, BLOOD 46 mg/dL (7-18)
[2021-10-07 01:42] LABS: ALANINE AMINOTRANSFERASE 65 U/L (12-78); ALBUMIN 3.1 g/dL (3.4-5.0); ALKALINE PHOSPHATASE 66 U/L (46-116); ASPARTATE AMINOTRANSFERASE 58 U/L (15-37); BILIRUBIN,TOTAL 0.3 mg/dL (0.1-1.0); CREATINE KINASE, TOTAL ONLY 725 U/L (39-308); LIPASE 60 U/L (73-393); TOTAL PROTEIN, SERUM 7.5 g/dL (6.4-8.2)
[2021-10-07 01:46] LABS: B-TYPE NATRIURETIC PEPTIDE 226 pg/mL (0-100)
[2021-10-07 02:01] LABS: LACTIC ACID 0.3 mmol/L (0.4-2.0)
[2021-10-07] MEDS ORDERED: NITROGLYCERIN 2% (1 GM=INCH) PACKET TP ONE (02:15)
[2021-10-07] MEDS ORDERED: LORazepam 2 MG/ML VIAL IVP ONE (02:15)
[2021-10-07] MEDS ORDERED: HYDROmorphone 2 MG/ML VIAL IVP ONE (02:15)
[2021-10-07] MEDS ORDERED: ONDANSETRON HCL 4 MG/2 ML VIAL IVP ONE (02:15)
[2021-10-07] MEDS ORDERED: METOPROLOL TARTRATE 50 MG TABLET PO ONE (02:30)
[2021-10-07] MEDS ORDERED: ONDANSETRON HCL 4 MG/2 ML VIAL IVP PRN (03:45)
[2021-10-07] MEDS ORDERED: ACETAMINOPHEN 325 MG TABLET PO PRN (03:45)
[2021-10-07] MEDS ORDERED: ASPIRIN 81 MG CHEWABLE TABLET PO SCH (04:00)
[2021-10-07] MEDS: NITROGLYCERIN 2% (1 GM=INCH) PACKET TP SCH ×2 (04:31→11:09)
[2021-10-07] MEDS ORDERED: FUROSEMIDE 40 MG/4 ML VIAL IVP SCH (05:30)
[2021-10-07 07:34] LABS: APPEARANCE,URINE CLEAR (CLEAR); BILIRUBIN,URINE NEGATIVE (NEGATIVE); GLUCOSE, URINE (UA) NEGATIVE (NEGATIVE); KETONES,URINE NEGATIVE (NEGATIVE); LEUKOCYTE ESTERASE ,URINE NEGATIVE (NEGATIVE); NITRATE,URINE NEGATIVE (NEGATIVE); OCCULT BLOOD,URINE NEGATIVE (NEGATIVE); PH,URINE 5.5 (5.0-8.0); PROTEIN,URINE NEGATIVE (NEGATIVE); SPECIFIC GRAVITIY, URINE 1.014 (1.003-1.030); UROBILINOGEN,URINE <=1.0 mg/dL (<=1.0)
[2021-10-07 07:40] LABS: AMPHET/METH SCREEN,URINE POSITIVE (NEGATIVE); BARBITURATE SCREEN, URINE NEGATIVE (NEGATIVE); BENZODIAZEPINES SCREEN,URINE NEGATIVE (NEGATIVE); CANNABINOID SCREEN,URINE POSITIVE (NEGATIVE); COCAINE SCREEN,URINE NEGATIVE (NEGATIVE); METHADONE SCREEN, URINE NEGATIVE (NEGATIVE); OPIATE SCREEN,URINE NEGATIVE (NEGATIVE); PHENCYCLIDINE SCREEN,URINE NEGATIVE (NEGATIVE)
[2021-10-07 07:49] LABS: BACTERIA,URINE None Seen /HPF (None Seen); RBC,URINE None Seen /HPF (0-2); SQUAMOUS EPITHELIAL CELL,UR None Seen /LPF (None Seen); WBC,URINE None Seen /HPF (0-5)
[2021-10-07] MEDS ORDERED: DILTIAZEM HCL 30 MG TABLET PO SCH (08:00)
[2021-10-07] MEDS ORDERED: SODIUM CHLORIDE 0.9% 1,000 ML IV SCH (11:30)
[2021-10-07 12:55] VITALS: BP 148/99
[2021-10-07] MEDS ORDERED: CARVEDILOL 6.25 MG TABLET PO SCH (13:15)
== END 2021-10-07 15:05 | disposition left against medical advice (07) | DRG 194 ==
LOC: EMS 23:50 → 5S 10-07 12:55
PROVIDERS: ADMIT Internal Medicine; ATTEND Internal Medicine
DX: I13.0 Hypertensive heart and chronic kidney disease with heart failure and stage 1 through stage 4 chronic kidney disease, or unspecified chronic kidney disease (principal); N17.0 Acute kidney failure with tubular necrosis; I21.4 Non-ST elevation (NSTEMI) myocardial infarction; G92.8 Other toxic encephalopathy; I50.21 Acute systolic (congestive) heart failure; F25.9 Schizoaffective disorder, unspecified; F17.210 Nicotine dependence, cigarettes, uncomplicated; F41.9 Anxiety disorder, unspecified; F15.10 Other stimulant abuse, uncomplicated; E78.5 Hyperlipidemia, unspecified; E78.00 Pure hypercholesterolemia, unspecified; F43.10 Post-traumatic stress disorder, unspecified; F42.9 Obsessive-compulsive disorder, unspecified; F31.9 Bipolar disorder, unspecified; I25.10 Atherosclerotic heart disease of native coronary artery without angina pectoris; J44.9 Chronic obstructive pulmonary disease, unspecified; N18.9 Chronic kidney disease, unspecified; I42.8 Other cardiomyopathies; I25.5 Ischemic cardiomyopathy; Z53.29 Procedure and treatment not carried out because of patient's decision for other reasons; K76.9 Liver disease, unspecified; E87.1 Hypo-osmolality and hyponatremia; Z82.49 Family history of ischemic heart disease and other diseases of the circulatory system; Z91.19 Patient's noncompliance with other medical treatment and regimen; Z88.5 Allergy status to narcotic agent; Z88.8 Allergy status to other drugs, medicaments and biological substances; I25.2 Old myocardial infarction; Z59.00 Homelessness unspecified
CPT/HCPCS: 71045; 76770; 80053; 81001; 82550; 83605; 83690; 83880; 84484; 85025; 93005; 93306; 99291; G0378; G0480; J1170; J1940; J2060; J2405; J7030; 36415-L1; 36415-TC

== ENCOUNTER 2021-10-12 00:58 | Emergency (ER) | payer OTHER ==
[~2021-10-12] VITALS: Ht 172.7 cm; Wt 76.6 kg
[2021-10-12] MEDS ORDERED: LORazepam 2 MG/ML VIAL IVP ONE (01:45)
[2021-10-12 01:46] LABS: BASOPHILS % (AUTO) 1.1 % (0.0-2.0); EOSINOPHILS % (AUTO) 4.3 % (1.0-6.0); HEMATOCRIT 43.2 % (41-53); HEMOGLOBIN 14.5 g/dL (13.5-17.5); LYMPHOCYTES # (AUTO) 1.7 K/uL (1.0-4.8); LYMPHOCYTES % (AUTO) 21.2 % (22.0-44.0); MEAN CORPUSCULAR HEMOGLOBIN 29.9 pg (26.0-34.0); MEAN CORPUSCULAR HGB CONC 33.5 G/dL (31.0-37.0); MEAN CORPUSCULAR VOLUME 89 fL (80-100); MONOCYTES # (AUTO) 0.9 K/uL (0.1-1.0); MONOCYTES % (AUTO) 11.1 % (2.0-9.0); NEUTROPHILS # (AUTO) 4.9 K/uL (1.8-7.7); NEUTROPHILS % (AUTO) 62.3 % (40.0-70.0); PLATELET COUNT (AUTO) 267 K/uL (150-450); RED BLOOD CELL COUNT(AUTO) 4.84 MIL/uL (4.50-5.90); RED CELL DISTRIBUTION WIDTH 13.5 % (11.5-14.5)
[2021-10-12 01:55] LABS: CALCIUM, TOTAL 8.8 mg/dL (8.8-10.5); CREATININE 1.56 mg/dL (0.60-1.30); POTASSIUM 3.7 mmol/L (3.5-5.1)
[2021-10-12] MEDS ORDERED: CloNIDine HCL 0.2 MG TABLET PO ONE (02:15)
[2021-10-12] MEDS ORDERED: RINGERS SOLUTION,LACTATED 1,000 ML IV ONE (03:00)
[2021-10-12 05:01] VITALS: BP 178/89
[2021-10-12] MEDS ORDERED: LORazepam 1 MG TABLET PO ONE (05:15)
== END 2021-10-12 06:33 | disposition home or self-care (01) ==
LOC: EMS 00:59
DX: R07.89 Other chest pain (principal); N17.9 Acute kidney failure, unspecified; F15.10 Other stimulant abuse, uncomplicated; I10 Essential (primary) hypertension; E78.00 Pure hypercholesterolemia, unspecified; F31.9 Bipolar disorder, unspecified; J45.909 Unspecified asthma, uncomplicated; F41.9 Anxiety disorder, unspecified; F17.210 Nicotine dependence, cigarettes, uncomplicated; Z59.00 Homelessness unspecified; Z88.8 Allergy status to other drugs, medicaments and biological substances
CPT/HCPCS: 36415; 71045; 80048; 84484; 85025; 93005; 96361; 96374; 99285; J2060; J7120

== ENCOUNTER 2022-04-19 19:11 | Emergency (ER) | payer OTHER ==
[~2022-04-19 19:11] MED LIST changes: -AMLO-512 PO; +ASPI-1450 PO; +ATOR40TA28 PO; -FLUO-191 PO; -LISI-662 PO; +NITR1OIN TP; -OLAN5TAB27 PO
== END 2022-04-19 19:31 | disposition left against medical advice (07) ==
LOC: EMS 19:11
DX: Z53.21 Procedure and treatment not carried out due to patient leaving prior to being seen by health care provider (principal)

== ENCOUNTER 2022-11-09 02:40 | Emergency (ER) | payer OTHER ==
[~2022-11-09] VITALS: Ht 172.7 cm; Wt 84.1 kg
[~2022-11-09 02:40] MED LIST changes: -ASPI-1450 PO; +ASPI81 PO; -ATOR40TA28 PO; +ATOR40TA71 PO; +FURO20 PO; +LISI-894 PO; -NITR1OIN TP; +SPIR-37 PO
[2022-11-09 03:14] LABS: BASOPHILS % (AUTO) 1.1 % (0.0-2.0); EOSINOPHILS % (AUTO) 2.6 % (1.0-6.0); HEMATOCRIT 42.1 % (41-53); HEMOGLOBIN 14.4 g/dL (13.5-17.5); LYMPHOCYTES # (AUTO) 0.8 K/uL (1.0-4.8); LYMPHOCYTES % (AUTO) 12.8 % (22.0-44.0); MEAN CORPUSCULAR HEMOGLOBIN 31.2 pg (26.0-34.0); MEAN CORPUSCULAR HGB CONC 34.3 G/dL (31.0-37.0); MEAN CORPUSCULAR VOLUME 91 fL (80-100); MONOCYTES # (AUTO) 0.8 K/uL (0.1-1.0); MONOCYTES % (AUTO) 13.3 % (2.0-9.0); NEUTROPHILS # (AUTO) 4.2 K/uL (1.8-7.7); NEUTROPHILS % (AUTO) 70.2 % (40.0-70.0); PLATELET COUNT (AUTO) 224 K/uL (150-450); RED BLOOD CELL COUNT(AUTO) 4.63 MIL/uL (4.50-5.90); RED CELL DISTRIBUTION WIDTH 13.1 % (11.5-14.5)
[2022-11-09 03:26] LABS: ANION GAP 9 mmol/L (8-16); CALCIUM, TOTAL 9.1 mg/dL (8.8-10.5); CARBON DIOXIDE 27 mmol/L (22-29); CHLORIDE 99 mmol/L (98-107); CREATININE 2.43 mg/dL (0.60-1.30); GLOMERULAR FILTR. RATE CALC 29 mL/min (>60); GLUCOSE,RANDOM 121 mg/dL (70-110); POTASSIUM 3.3 mmol/L (3.5-5.1); SODIUM SERUM 135 mmol/L (136-145)
[2022-11-09] MEDS ORDERED: NITROGLYCERIN 2% (1 GM=INCH) OINTMENT PACKET TP ONE (03:30)
[2022-11-09 03:38] LABS: PROTHROMBIN TIME 10.3 SEC (9.4-11.6)
[2022-11-09 03:47] LABS: ALANINE AMINOTRANSFERASE 46 U/L (12-78); ALBUMIN 3.4 g/dL (3.4-5.0); ALKALINE PHOSPHATASE 63 U/L (46-116); ASPARTATE AMINOTRANSFERASE 38 U/L (15-37); B-TYPE NATRIURETIC PEPTIDE 186 pg/mL (0-100); BILIRUBIN,TOTAL 0.2 mg/dL (0.1-1.0); CREATINE KINASE, TOTAL ONLY 405 U/L (39-308); TOTAL PROTEIN, SERUM 7.7 g/dL (6.4-8.2)
[2022-11-09] MEDS ORDERED: HEPARIN SODIUM 25000 UNITS/D5W 250 ML IV PRN (04:15)
[2022-11-09] MEDS ORDERED: HEPARIN SODIUM,PORCINE 5,000 UNITS/ML VIAL IVP PRN ×2 (04:15)
[2022-11-09] MEDS ORDERED: HEPARIN SODIUM,PORCINE 5,000 UNITS/ML VIAL IVP ONE ×2 (04:15→04:30)
[2022-11-09] MEDS ORDERED: ONDANSETRON HCL 4 MG/2 ML VIAL IVP PRN (04:30)
[2022-11-09] MEDS ORDERED: POTASSIUM CHLORIDE 10% 40 MEQ/30 ML LIQUID UDCUP PO ONE (04:30)
[2022-11-09] MEDS ORDERED: ACETAMINOPHEN 325 MG TABLET PO PRN (04:30)
[2022-11-09] MEDS ORDERED: HYDROmorphone HCL 2 MG/ML SYRINGE IVP PRN (04:30)
[2022-11-09] MEDS ORDERED: CefTRIAXone 1 GM/DEXTROSE 50 ML IV SCH (05:45)
[2022-11-09 06:00] VITALS: TEMP 98.7
[2022-11-09 07:55] LABS: COVID AG,FIA SOURCE NASAL SWAB
[2022-11-09 08:02] LABS: APPEARANCE,URINE CLEAR (CLEAR); BILIRUBIN,URINE NEGATIVE (NEGATIVE); GLUCOSE, URINE (UA) NEGATIVE (NEGATIVE); KETONES,URINE NEGATIVE (NEGATIVE); LEUKOCYTE ESTERASE ,URINE NEGATIVE (NEGATIVE); NITRATE,URINE NEGATIVE (NEGATIVE); OCCULT BLOOD,URINE NEGATIVE (NEGATIVE); PH,URINE 5.5 (5.0-8.0); PROTEIN,URINE 30-70 mg/dL (NEGATIVE); UROBILINOGEN,URINE <=1.0 mg/dL (<=1.0)
[2022-11-09 08:22] LABS: AMPHET/METH SCREEN,URINE POSITIVE (NEGATIVE); BARBITURATE SCREEN, URINE NEGATIVE (NEGATIVE); BENZODIAZEPINES SCREEN,URINE NEGATIVE (NEGATIVE); CANNABINOID SCREEN,URINE POSITIVE (NEGATIVE); COCAINE SCREEN,URINE NEGATIVE (NEGATIVE); METHADONE SCREEN, URINE NEGATIVE (NEGATIVE); OPIATE SCREEN,URINE NEGATIVE (NEGATIVE); PHENCYCLIDINE SCREEN,URINE NEGATIVE (NEGATIVE)
[2022-11-09] MEDS ORDERED: DOCUSATE SODIUM 100 MG CAPSULE PO SCH (09:00)
[2022-11-09] MEDS ORDERED: FUROSEMIDE 40 MG/4 ML VIAL IVP SCH (09:00)
[2022-11-09] MEDS ORDERED: METOPROLOL TARTRATE 25 MG TABLET PO SCH (09:00)
[2022-11-09] MEDS ORDERED: ATORVASTATIN CALCIUM 40 MG TABLET PO SCH (09:00)
[2022-11-09] MEDS ORDERED: ASPIRIN 81 MG CHEWABLE TABLET PO SCH (09:00)
[2022-11-09 13:54] VITALS: BP 155/89; PULSE 70; RESP 14
== END 2022-11-09 14:54 | disposition left against medical advice (07) ==
LOC: EMS 02:41 → AHU 04:27 → UNDOADMIN 04:27 → UNDODISIN 14:54
DX: I21.A1 Myocardial infarction type 2 (principal); I10 Essential (primary) hypertension; F17.210 Nicotine dependence, cigarettes, uncomplicated; Z98.890 Other specified postprocedural states; Z59.00 Homelessness unspecified; Z88.5 Allergy status to narcotic agent; Z88.8 Allergy status to other drugs, medicaments and biological substances; Z20.822 Contact with and (suspected) exposure to COVID-19
CPT/HCPCS: 99291; 96365; 71250; 71045; 96375; 87426; 80053; 81003; 82550; 83880; 84484; 85025; 85610; 85730; 36415; 93005; 96376; 80307; J1940; G0480; J1644 ×2; 99285; G0378

== ENCOUNTER 2022-12-27 00:06 | Emergency (ER) | payer OTHER | END 2022-12-27 01:56 | disposition left against medical advice (07) | LOC: EMS 00:07 | DX: Z53.21 Procedure and treatment not carried out due to patient leaving prior to being seen by health care provider (principal) | CPT/HCPCS: 29515; 99281; Z7502 ==

== ENCOUNTER 2023-12-16 12:31 | Emergency (ER) | payer OTHER ==
[~2023-12-16] VITALS: Ht 172.7 cm; Wt 100.0 kg
[~2023-12-16 12:31] MED LIST changes: +ASPI-1450 PO; -ASPI81 PO; +CARV6 PO; +OMEP20 PO
[2023-12-16 12:46] VITALS: BP 175/87; PULSE 88; RESP 16; TEMP 98
[2023-12-16 13:39] LABS: BASOPHILS % (AUTO) 1.7 % (0.0-2.0); EOSINOPHILS % (AUTO) 5.4 % (1.0-6.0); HEMATOCRIT 39.4 % (41-53); HEMOGLOBIN 13.1 g/dL (13.5-17.5); LYMPHOCYTES # (AUTO) 1.1 K/uL (1.0-4.8); LYMPHOCYTES % (AUTO) 18.7 % (22.0-44.0); MEAN CORPUSCULAR HEMOGLOBIN 29.9 pg (26.0-34.0); MEAN CORPUSCULAR HGB CONC 33.2 G/dL (31.0-37.0); MEAN CORPUSCULAR VOLUME 90 fL (80-100); MONOCYTES # (AUTO) 0.6 K/uL (0.1-1.0); MONOCYTES % (AUTO) 10.7 % (2.0-9.0); NEUTROPHILS # (AUTO) 3.6 K/uL (1.8-7.7); NEUTROPHILS % (AUTO) 63.5 % (40.0-70.0); PLATELET COUNT (AUTO) 278 K/uL (150-450); RED BLOOD CELL COUNT(AUTO) 4.36 MIL/uL (4.50-5.90); RED CELL DISTRIBUTION WIDTH 13.7 % (11.5-14.5); WHITE BLOOD COUNT (AUTO) 5.7 K/uL (4.5-11.0)
[2023-12-16 13:51] LABS: CALCIUM, TOTAL 8.3 mg/dL (8.8-10.5); CREATININE 1.49 mg/dL (0.60-1.30); POTASSIUM 3.3 mmol/L (3.5-5.1)
[2023-12-16 14:03] LABS: TROPONIN I-HIGH SENSITIVITY 2173 ng/L (<76)
[2023-12-16 15:39] LABS: TROPONIN I-HIGH SENSITIVITY 2309 ng/L (<76)
== END 2023-12-16 16:51 | disposition admitted as inpatient to this hospital (09) ==
LOC: EMS 12:31
DX: I13.10 Hypertensive heart and chronic kidney disease without heart failure, with stage 1 through stage 4 chronic kidney disease, or unspecified chronic kidney disease (principal); N18.9 Chronic kidney disease, unspecified; I43 Cardiomyopathy in diseases classified elsewhere; F15.10 Other stimulant abuse, uncomplicated; F41.9 Anxiety disorder, unspecified; F31.9 Bipolar disorder, unspecified; F20.9 Schizophrenia, unspecified; F12.90 Cannabis use, unspecified, uncomplicated; F17.210 Nicotine dependence, cigarettes, uncomplicated; Z59.00 Homelessness unspecified; Z90.49 Acquired absence of other specified parts of digestive tract; Z98.890 Other specified postprocedural states; Z88.6 Allergy status to analgesic agent; Z88.8 Allergy status to other drugs, medicaments and biological substances
CPT/HCPCS: 71045; 80048; 83880; 84484; 85025; 93005; 99285; 36415-L1; 36415-TC

== ENCOUNTER → 2023-12-30 | Emergency (ER) | payer OTHER ==
[~2023-12-30] VITALS: Ht 175.3 cm; Wt 92.3 kg
[~2023-12-30] MED LIST changes: +ASPIRIN 325 MG TABLET PO ONE
[2023-12-30 18:08] VITALS: BP 153/84; PULSE 72; RESP 18; TEMP 98.2; O2SAT 99
[2023-12-30 18:40] LABS: BASOPHILS % (AUTO) 1.4 % (0.0-2.0); EOSINOPHILS % (AUTO) 9.7 % (1.0-6.0); HEMATOCRIT 40.1 % (41-53); HEMOGLOBIN 13.5 g/dL (13.5-17.5); LYMPHOCYTES % (AUTO) 21.5 % (22.0-44.0); MEAN CORPUSCULAR HEMOGLOBIN 30.5 pg (26.0-34.0); MEAN CORPUSCULAR HGB CONC 33.7 G/dL (31.0-37.0); MEAN CORPUSCULAR VOLUME 91 fL (80-100); MONOCYTES % (AUTO) 21.3 % (2.0-9.0); NEUTROPHILS # (AUTO) 2.2 K/uL (1.8-7.7); NEUTROPHILS % (AUTO) 46.1 % (40.0-70.0); PLATELET COUNT (AUTO) 233 K/uL (150-450); RED BLOOD CELL COUNT(AUTO) 4.42 MIL/uL (4.50-5.90); RED CELL DISTRIBUTION WIDTH 14.3 % (11.5-14.5); WHITE BLOOD COUNT (AUTO) 4.8 K/uL (4.5-11.0)
[2023-12-30 18:44] LABS: CALCIUM, TOTAL 8.2 mg/dL (8.8-10.5); CREATININE 1.64 mg/dL (0.60-1.30); POTASSIUM 4.4 mmol/L (3.5-5.1)
[2023-12-30 19:05] LABS: TROPONIN I-HIGH SENSITIVITY 2396 ng/L (<76)
[2023-12-30 19:16] LABS: PLATELET MORPHOLOGY COMMENT LARGE PLTS PRESENT; RBC MORPHOLOGY COMMENT NORMAL RBC MORPH
== END | disposition still patient (30) ==
LOC: EMS 17:34
DX: I21.4 Non-ST elevation (NSTEMI) myocardial infarction (principal); I11.9 Hypertensive heart disease without heart failure; F41.9 Anxiety disorder, unspecified; F20.9 Schizophrenia, unspecified; F31.9 Bipolar disorder, unspecified; F12.90 Cannabis use, unspecified, uncomplicated; F15.90 Other stimulant use, unspecified, uncomplicated; F17.210 Nicotine dependence, cigarettes, uncomplicated; Z59.00 Homelessness unspecified; Z98.890 Other specified postprocedural states; Z88.6 Allergy status to analgesic agent; Z88.8 Allergy status to other drugs, medicaments and biological substances
CPT/HCPCS: 71045; 80048; 84484; 85025; 93005; 99285; 99407; 36415-L1; 36415-TC

== ENCOUNTER 2024-04-05 05:24 | Emergency (ER) | payer OTHER ==
[~2024-04-05] VITALS: Ht 172.7 cm; Wt 72.7 kg
[~2024-04-05 05:24] MED LIST changes: +AMOX-426 PO; +ASPI-1444 PO; -ASPI-1450 PO; -ASPIRIN 325 MG TABLET PO ONE; -ATOR40TA71 PO; -CARV6 PO; -FURO20 PO; +FURO20TA5 PO; -LISI-894 PO; +LOSA-381 PO; +METO25XL PO; -OMEP20 PO
[2024-04-05 05:31] VITALS: BP 138/82; PULSE 112; RESP 18; TEMP 98.3; O2SAT 99
[2024-04-05] MEDS: LORazepam 2 MG TABLET PO ONE (05:49)
== END 2024-04-05 05:59 | disposition home or self-care (01) ==
LOC: EMS 05:26
DX: F41.9 Anxiety disorder, unspecified (principal); F15.10 Other stimulant abuse, uncomplicated; F31.9 Bipolar disorder, unspecified; I11.9 Hypertensive heart disease without heart failure; F12.90 Cannabis use, unspecified, uncomplicated; F17.210 Nicotine dependence, cigarettes, uncomplicated; F20.9 Schizophrenia, unspecified; Z95.5 Presence of coronary angioplasty implant and graft; Z90.49 Acquired absence of other specified parts of digestive tract; Z59.00 Homelessness unspecified; Z79.82 Long term (current) use of aspirin; Z88.5 Allergy status to narcotic agent
CPT/HCPCS: 99283

== ENCOUNTER 2024-05-07 15:15 | Emergency (ER) | payer OTHER ==
[~2024-05-07] VITALS: Ht 167.6 cm; Wt 76.8 kg
[2024-05-07 15:22] VITALS: TEMP 98.7
[2024-05-07 15:41] LABS: BASOPHILS % (AUTO) 1.1 % (0.0-2.0); EOSINOPHILS % (AUTO) 8.5 % (1.0-6.0); HEMATOCRIT 39.8 % (41-53); HEMOGLOBIN 13.5 g/dL (13.5-17.5); LYMPHOCYTES % (AUTO) 18.6 % (22.0-44.0); MEAN CORPUSCULAR HGB CONC 34.1 G/dL (31.0-37.0); MEAN CORPUSCULAR VOLUME 91 fL (80-100); MONOCYTES # (AUTO) 0.6 K/uL (0.1-1.0); MONOCYTES % (AUTO) 11.3 % (2.0-9.0); NEUTROPHILS # (AUTO) 3.4 K/uL (1.8-7.7); NEUTROPHILS % (AUTO) 60.5 % (40.0-70.0); PLATELET COUNT (AUTO) 197 K/uL (150-450); RED BLOOD CELL COUNT(AUTO) 4.37 MIL/uL (4.50-5.90); RED CELL DISTRIBUTION WIDTH 13.2 % (11.5-14.5); WHITE BLOOD COUNT (AUTO) 5.6 K/uL (4.5-11.0)
[2024-05-07 15:51] LABS: CALCIUM, TOTAL 8.3 mg/dL (8.8-10.5); CREATININE 2.38 mg/dL (0.60-1.30); POTASSIUM 3.6 mmol/L (3.5-5.1)
[2024-05-07 16:08] LABS: TROPONIN I-HIGH SENSITIVITY 1249 ng/L (<76)
[2024-05-07] MEDS: LORazepam 1 MG TABLET PO ONE (16:13)
[2024-05-07 16:42] VITALS: BP 119/60; PULSE 90; RESP 18; O2SAT 96
== END 2024-05-07 17:25 | disposition home or self-care (01) ==
LOC: EMS 15:20
DX: R07.89 Other chest pain (principal); F41.9 Anxiety disorder, unspecified; F17.210 Nicotine dependence, cigarettes, uncomplicated; F12.90 Cannabis use, unspecified, uncomplicated; F15.90 Other stimulant use, unspecified, uncomplicated; F20.9 Schizophrenia, unspecified; F31.9 Bipolar disorder, unspecified; I11.0 Hypertensive heart disease with heart failure; I50.9 Heart failure, unspecified; Z59.00 Homelessness unspecified; Z79.82 Long term (current) use of aspirin; Z79.899 Other long term (current) drug therapy; Z88.5 Allergy status to narcotic agent; Z90.49 Acquired absence of other specified parts of digestive tract; Z95.5 Presence of coronary angioplasty implant and graft
CPT/HCPCS: 71045; 80048; 83880; 84484; 85025; 93005; 99285; 99406; 36415-L1; 36415-TC

== ENCOUNTER 2024-11-07 01:33 | Emergency (ER) | payer OTHER ==
[~2024-11-07] VITALS: Ht 167.6 cm; Wt 84.0 kg
[~2024-11-07 01:33] MED LIST changes: +ALBU18HF12 IH; -AMOX-426 PO; +CLON0.1T2 PO; -LOSA-381 PO; +LOSA-382 PO; +PARO-38 PO
[2024-11-07 02:20] LABS: PLATELET COUNT (AUTO) 213 K/uL (150-450); RED BLOOD CELL COUNT(AUTO) 4.76 MIL/uL (4.50-5.90); RED CELL DISTRIBUTION WIDTH 13.5 % (11.5-14.5); WHITE BLOOD COUNT (AUTO) 6.1 K/uL (4.5-11.0)
[2024-11-07 02:28] LABS: CALCIUM, TOTAL 8.7 mg/dL (8.8-10.5); CREATININE 1.39 mg/dL (0.60-1.30); GLOMERULAR FILTR. RATE CALC 54 mL/min (>60); GLUCOSE,RANDOM 101 mg/dL (70-110); SODIUM SERUM 142 mmol/L (136-145); UREA NITROGEN, BLOOD 30 mg/dL (7-18)
[2024-11-07 02:34] LABS: ASPARTATE AMINOTRANSFERASE 43.0 U/L (15-37); TOTAL PROTEIN, SERUM 6.9 g/dL (6.4-8.2)
[2024-11-07 02:40] LABS: TROPONIN I-HIGH SENSITIVITY 1493 ng/L (<76)
[2024-11-07 03:43] VITALS: TEMP 97.1
[2024-11-07 04:35] LABS: TROPONIN I-HIGH SENSITIVITY 1554 ng/L (<76)
[2024-11-07] MEDS ORDERED: ACETAMINOPHEN 1000 MG/ISO-OSM 100 ML IV ONE (05:15)
[2024-11-07] MEDS: ACETAMINOPHEN 500 MG TABLET PO ONE (05:15)
[2024-11-07] MEDS ORDERED: METO25XL PO (05:23)
[2024-11-07] MEDS ORDERED: LOSA-382 PO (05:23)
[2024-11-07] MEDS ORDERED: SPIR-37 PO (05:23)
[2024-11-07] MEDS ORDERED: CLON0.1T2 PO (05:23)
[2024-11-07] MEDS ORDERED: FURO20TA5 PO (05:23)
[2024-11-07 06:58] VITALS: BP 133/75; PULSE 72; RESP 16; O2SAT 100
== END 2024-11-07 06:58 | disposition home or self-care (01) ==
LOC: EMS 01:33
DX: R07.89 Other chest pain (principal); I10 Essential (primary) hypertension; F12.90 Cannabis use, unspecified, uncomplicated; F20.9 Schizophrenia, unspecified; F31.9 Bipolar disorder, unspecified; F41.9 Anxiety disorder, unspecified; R06.02 Shortness of breath; F17.210 Nicotine dependence, cigarettes, uncomplicated; I25.10 Atherosclerotic heart disease of native coronary artery without angina pectoris; Z59.00 Homelessness unspecified; Z79.82 Long term (current) use of aspirin; Z88.5 Allergy status to narcotic agent; Z90.49 Acquired absence of other specified parts of digestive tract; Z79.899 Other long term (current) drug therapy
CPT/HCPCS: 71045; 80048; 80076; 83880; 84484; 85025; 93005; 99285; 36415-L1; 36415-TC

== ENCOUNTER 2024-11-08 03:34 | Emergency (ER) | payer OTHER ==
[~2024-11-08] VITALS: Ht 165.1 cm; Wt 75.0 kg
[2024-11-08 04:41] LABS: PLATELET COUNT (AUTO) 208 K/uL (150-450); RED BLOOD CELL COUNT(AUTO) 4.67 MIL/uL (4.50-5.90); RED CELL DISTRIBUTION WIDTH 13.4 % (11.5-14.5); WHITE BLOOD COUNT (AUTO) 6.5 K/uL (4.5-11.0)
[2024-11-08 04:47] LABS: CALCIUM, TOTAL 8.9 mg/dL (8.8-10.5); CREATININE 1.35 mg/dL (0.60-1.30); GLOMERULAR FILTR. RATE CALC 56 mL/min (>60); GLUCOSE,RANDOM 127 mg/dL (70-110); SODIUM SERUM 137 mmol/L (136-145); UREA NITROGEN, BLOOD 29 mg/dL (7-18)
[2024-11-08 05:23] LABS: TROPONIN I-HIGH SENSITIVITY 1245 ng/L (<76)
[2024-11-08 06:55] VITALS: BP 147/86; PULSE 70; RESP 18; TEMP 97.3; O2SAT 99
== END 2024-11-08 06:55 | disposition home or self-care (01) ==
LOC: EMS 03:34
DX: R07.89 Other chest pain (principal); F41.9 Anxiety disorder, unspecified; F31.9 Bipolar disorder, unspecified; F20.9 Schizophrenia, unspecified; I10 Essential (primary) hypertension; F12.90 Cannabis use, unspecified, uncomplicated; F17.210 Nicotine dependence, cigarettes, uncomplicated; F15.90 Other stimulant use, unspecified, uncomplicated; I25.10 Atherosclerotic heart disease of native coronary artery without angina pectoris; Z90.49 Acquired absence of other specified parts of digestive tract; Z95.5 Presence of coronary angioplasty implant and graft; Z79.82 Long term (current) use of aspirin; Z88.5 Allergy status to narcotic agent; Z79.899 Other long term (current) drug therapy; Z59.00 Homelessness unspecified
CPT/HCPCS: 80048; 84484; 85025; 93005; 99284

== ENCOUNTER 2024-11-10 02:39 | Emergency (ER) | payer OTHER ==
[~2024-11-10] VITALS: Ht 172.7 cm; Wt 65.0 kg
[2024-11-10 02:48] VITALS: TEMP 98.2
[2024-11-10 03:24] LABS: PLATELET COUNT (AUTO) 204 K/uL (150-450); RED BLOOD CELL COUNT(AUTO) 4.65 MIL/uL (4.50-5.90); RED CELL DISTRIBUTION WIDTH 13.7 % (11.5-14.5); WHITE BLOOD COUNT (AUTO) 7.3 K/uL (4.5-11.0)
[2024-11-10 03:35] LABS: CALCIUM, TOTAL 9.0 mg/dL (8.8-10.5); CREATININE 1.45 mg/dL (0.60-1.30); GLOMERULAR FILTR. RATE CALC 52 mL/min (>60); GLUCOSE,RANDOM 107 mg/dL (70-110); SODIUM SERUM 142 mmol/L (136-145); UREA NITROGEN, BLOOD 34 mg/dL (7-18)
[2024-11-10 03:54] LABS: TROPONIN I-HIGH SENSITIVITY 1708 ng/L (<76)
[2024-11-10 04:15] VITALS: BP 149/80; PULSE 71; RESP 16; O2SAT 97
== END 2024-11-10 05:57 | disposition home or self-care (01) ==
LOC: EMS 04:05
DX: R07.89 Other chest pain (principal); F41.9 Anxiety disorder, unspecified; F31.9 Bipolar disorder, unspecified; I25.10 Atherosclerotic heart disease of native coronary artery without angina pectoris; I10 Essential (primary) hypertension; K21.9 Gastro-esophageal reflux disease without esophagitis; F12.90 Cannabis use, unspecified, uncomplicated; F15.90 Other stimulant use, unspecified, uncomplicated; F17.210 Nicotine dependence, cigarettes, uncomplicated; F20.9 Schizophrenia, unspecified; Z95.5 Presence of coronary angioplasty implant and graft; Z88.5 Allergy status to narcotic agent; Z90.49 Acquired absence of other specified parts of digestive tract; Z79.82 Long term (current) use of aspirin; Z59.00 Homelessness unspecified; Z79.899 Other long term (current) drug therapy; Z88.8 Allergy status to other drugs, medicaments and biological substances
CPT/HCPCS: 80048; 84484; 85025; 93005; 99284

== ENCOUNTER 2024-11-15 00:20 | Emergency (ER) | payer OTHER ==
[~2024-11-15] VITALS: Ht 167.6 cm; Wt 74.0 kg
[2024-11-15 00:39] VITALS: BP 136/75; PULSE 100; RESP 18; TEMP 97.9; O2SAT 98
== END 2024-11-15 05:45 | disposition home or self-care (01) ==
LOC: EMS 00:22
DX: F41.9 Anxiety disorder, unspecified (principal); I10 Essential (primary) hypertension; F12.90 Cannabis use, unspecified, uncomplicated; F20.9 Schizophrenia, unspecified; F31.9 Bipolar disorder, unspecified; F17.210 Nicotine dependence, cigarettes, uncomplicated; F15.90 Other stimulant use, unspecified, uncomplicated; Z88.5 Allergy status to narcotic agent; Z79.82 Long term (current) use of aspirin; Z90.49 Acquired absence of other specified parts of digestive tract; Z59.00 Homelessness unspecified; Z79.899 Other long term (current) drug therapy
CPT/HCPCS: 99283; Z7502

== ENCOUNTER 2025-02-21 22:09 | Emergency (ER) | payer SELFPAY ==
[~2025-02-21] VITALS: Ht 172.7 cm; Wt 72.7 kg
[2025-02-21 23:13] LABS: PLATELET COUNT (AUTO) 244 K/uL (150-450); RED BLOOD CELL COUNT(AUTO) 4.81 MIL/uL (4.50-5.90); RED CELL DISTRIBUTION WIDTH 13.2 % (11.5-14.5); WHITE BLOOD COUNT (AUTO) 6.1 K/uL (4.5-11.0)
[2025-02-21 23:24] LABS: CALCIUM, TOTAL 8.9 mg/dL (8.8-10.5); CREATININE 1.73 mg/dL (0.60-1.30); GLOMERULAR FILTR. RATE CALC 42 mL/min (>60); GLUCOSE,RANDOM 80 mg/dL (70-110); SODIUM SERUM 142 mmol/L (136-145); UREA NITROGEN, BLOOD 32 mg/dL (7-18)
[2025-02-21 23:34] LABS: TROPONIN I-HIGH SENSITIVITY 1060 ng/L (<76)
[2025-02-22 00:55] VITALS: TEMP 98.205296
[2025-02-22 01:42] LABS: TROPONIN I-HIGH SENSITIVITY 1030 ng/L (<76)
[2025-02-22 02:43] VITALS: BP 158/80; PULSE 74; RESP 16; O2SAT 98
[2025-02-22] MEDS: FUROSEMIDE 20 MG TABLET PO ONE (02:52)
[2025-02-22] MEDS: ASPIRIN 81 MG CHEWABLE TABLET PO ONE (02:52)
[2025-02-22] MEDS: METOPROLOL TARTRATE 25 MG TABLET PO ONE (02:52)
[2025-02-22] MEDS ORDERED: SPIR-37 PO (03:01)
[2025-02-22] MEDS ORDERED: FURO20TA5 PO (03:01)
[2025-02-22] MEDS ORDERED: METO25XL PO (03:01)
[2025-02-22] MEDS ORDERED: ASPI-1444 PO (03:01)
[2025-02-22] MEDS ORDERED: CLON0.1T2 PO (03:01)
[2025-02-22] MEDS ORDERED: LOSA-382 PO (03:02)
== END 2025-02-22 03:35 | disposition home or self-care (01) ==
LOC: EMS 22:09
DX: F15.129 Other stimulant abuse with intoxication, unspecified (principal); I11.0 Hypertensive heart disease with heart failure; I25.10 Atherosclerotic heart disease of native coronary artery without angina pectoris; I50.9 Heart failure, unspecified; I25.2 Old myocardial infarction; F12.90 Cannabis use, unspecified, uncomplicated; F20.9 Schizophrenia, unspecified; F31.9 Bipolar disorder, unspecified; F41.9 Anxiety disorder, unspecified; F17.210 Nicotine dependence, cigarettes, uncomplicated; Z59.00 Homelessness unspecified; Z59.71 Insufficient health insurance coverage; Z76.0 Encounter for issue of repeat prescription; Z79.82 Long term (current) use of aspirin; Z79.899 Other long term (current) drug therapy; Z88.5 Allergy status to narcotic agent; Z90.49 Acquired absence of other specified parts of digestive tract; Z95.5 Presence of coronary angioplasty implant and graft
CPT/HCPCS: 71045; 80048; 83880; 84484; 85025; 93005; 99285; 36415-L1; 36415-TC

== ENCOUNTER 2025-03-31 21:33 | Emergency (ER) | payer OTHER ==
[~2025-03-31] VITALS: Ht 172.7 cm; Wt 72.7 kg
[2025-03-31 21:46] VITALS: BP 142/70; PULSE 97; RESP 20; TEMP 99.2; O2SAT 98
[2025-03-31 23:29] LABS: COVID AG,FIA SOURCE NASAL SWAB
[2025-04-01 00:03] LABS: INFLUENZA TYPE A NEGATIVE FOR TYPE A (NEGATIVE); INFLUENZA TYPE B NEGATIVE FOR TYPE B (NEGATIVE)
[2025-04-01 00:04] LABS: SARS-COV2 (COVID) ANTIGEN,FIA Negative (Negative)
[2025-04-01] MEDS: ALBUTEROL SULFATE HFA 90 MCG/PUFF 8 GM INHALER IH ONE (02:34)
[2025-04-01] MEDS: BENZONATATE 100 MG CAPSULE PO ONE (02:35)
[2025-04-01] MEDS: ACETAMINOPHEN 500 MG TABLET PO ONE (02:35)
[2025-04-01] MEDS ORDERED: LOSA-382 PO (02:45)
[2025-04-01] MEDS ORDERED: PARO-38 PO (02:45)
[2025-04-01] MEDS ORDERED: ASPI-1444 PO (02:45)
[2025-04-01] MEDS ORDERED: FURO20TA5 PO (02:45)
[2025-04-01] MEDS ORDERED: CLON0.1T2 PO (02:45)
[2025-04-01] MEDS ORDERED: METO25XL PO (02:45)
== END 2025-04-01 03:26 | disposition home or self-care (01) ==
LOC: EMS 21:35
DX: J06.9 Acute upper respiratory infection, unspecified (principal); B97.89 Other viral agents as the cause of diseases classified elsewhere; F41.9 Anxiety disorder, unspecified; F31.9 Bipolar disorder, unspecified; I11.9 Hypertensive heart disease without heart failure; F20.9 Schizophrenia, unspecified; F12.90 Cannabis use, unspecified, uncomplicated; F15.90 Other stimulant use, unspecified, uncomplicated; F17.210 Nicotine dependence, cigarettes, uncomplicated; Z98.890 Other specified postprocedural states; Z79.82 Long term (current) use of aspirin; Z90.49 Acquired absence of other specified parts of digestive tract; Z95.5 Presence of coronary angioplasty implant and graft; Z88.5 Allergy status to narcotic agent; Z59.00 Homelessness unspecified; Z79.899 Other long term (current) drug therapy; Z20.822 Contact with and (suspected) exposure to COVID-19
CPT/HCPCS: 87804; 94640; 99283; J3535

== ENCOUNTER 2025-05-01 03:42 | Emergency (ER) | payer OTHER ==
[~2025-05-01] VITALS: Ht 172.7 cm; Wt 72.7 kg
[~2025-05-01 03:42] MED LIST changes: -SPIR-37 PO
[2025-05-01 04:12] LABS: PLATELET COUNT (AUTO) 212 K/uL (150-450); RED BLOOD CELL COUNT(AUTO) 4.29 MIL/uL (4.50-5.90); RED CELL DISTRIBUTION WIDTH 14.1 % (11.5-14.5); WHITE BLOOD COUNT (AUTO) 6.1 K/uL (4.5-11.0)
[2025-05-01 04:26] LABS: CALCIUM, TOTAL 8.7 mg/dL (8.8-10.5); CREATININE 2.06 mg/dL (0.60-1.30); GLOMERULAR FILTR. RATE CALC 34 mL/min (>60); GLUCOSE,RANDOM 131 mg/dL (70-110); SODIUM SERUM 139 mmol/L (136-145); UREA NITROGEN, BLOOD 38 mg/dL (7-18)
[2025-05-01 04:31] LABS: ASPARTATE AMINOTRANSFERASE 69.0 U/L (15-37); TOTAL PROTEIN, SERUM 7.2 g/dL (6.4-8.2)
[2025-05-01 04:43] LABS: TROPONIN I-HIGH SENSITIVITY 1050 ng/L (<76)
[2025-05-01] MEDS: ASPIRIN 81 MG CHEWABLE TABLET PO ONE (05:42)
[2025-05-01 06:32] VITALS: BP 139/84; PULSE 78; RESP 16; TEMP 97.3; O2SAT 100
== END 2025-05-01 06:32 | disposition home or self-care (01) ==
LOC: EMS 03:49
DX: R07.89 Other chest pain (principal); F15.10 Other stimulant abuse, uncomplicated; R79.89 Other specified abnormal findings of blood chemistry; F20.9 Schizophrenia, unspecified; F31.9 Bipolar disorder, unspecified; F41.9 Anxiety disorder, unspecified; I11.9 Hypertensive heart disease without heart failure; F12.90 Cannabis use, unspecified, uncomplicated; F17.210 Nicotine dependence, cigarettes, uncomplicated; Z59.00 Homelessness unspecified; Z79.82 Long term (current) use of aspirin; Z79.899 Other long term (current) drug therapy; Z88.5 Allergy status to narcotic agent; Z95.5 Presence of coronary angioplasty implant and graft; Z90.49 Acquired absence of other specified parts of digestive tract; Z98.890 Other specified postprocedural states
CPT/HCPCS: 71045; 80048; 80076; 83880; 84484; 85025; 85610; 85730; 93005; 99285; 36415-L1; 36415-TC